=== PATIENT | female | born 1950 | race Caucasian/White ===

== ENCOUNTER 2017-08-12 13:12 | Inpatient (IN) | payer MEDICARE, MEDICAID ==
--- NOTE | 2017-08-12 13:41 | ED Physician Chart ---
ED Chief Complaint/HPI - Patient Information Date Seen:: 08/12/17 Time Seen:: 13:30 Chief Complaint:: LLE Redness History of Present Illness:: onset x 3 days of LLE erythema and swelling; no report of trauma, H/As, neck pain, S/T, cough, C/P, SOB, Abd. pain, A/N/V/D/c, fever, chills, or urinary s/s ; pt's last tetanus shot: < 5 years; UTD Allergies:: Allergies Allergy/AdvReac Type Severity Reaction Status Date / Time hydromorphone [From Dilaudid] Allergy Verified 03/08/16 20:06 Historian:: Patient, EMS Review:: Nurse's Note Reviewed, Old Chart Reviewed, EMS run form Reviewed ED Review of Systems - Review of Systems General/Constitutional: No fever, No chills, No weight loss, No weakness, No diaphoresis, No edema, No loss of appetite Skin: Skin lesions, Rash, No bruising Head: No headache, No light-headedness Eyes: No loss of vision, No pain, No diplopia ENT: No earache, No nasal drainage, No sore throat, No tinnitus Neck: No neck pain, No swelling, No thyromegaly, No stiffness, No mass noted Cardio Vascular: No chest pain, No palpitations, No PND, No orthopnea, No edema Pulmonary: No SOB, No cough, No sputum, No wheezing GI: No nausea, No vomiting, No diarrhea, No pain, No melena, No hematochezia, No constipation, No hematemesis G/U: No dysuria, No frequency, No hematuria, No nacturia 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: No vaginal discharge, No abnormal vaginal bleed, No contraction Musculoskeletal: No bone or joint pain, No back pain, No muscle pain Endocrine: No polyuria, No polydipsia Psychiatric: No prior psych history, No depression, No anxiety, No suicidal ideation, No homicidal ideation, No auditory hallucination, No visual hallucination Hematopoietic: No bruising, No lymphadenopathy Allergic/Immuno: No urticaria, No angioedema Neurological: No syncope, Focal symptoms, Weakness, No paresthesia, No headache , No seizure, Dizziness, No confusion, No vertigo ED Past Medical History - Past Medical History Obtainable: Yes Past Medical History: HTN, Asthma/COPD, CVA/TIA, Dyslipidemia Family History: Diabetes Melitus, HTN Social History: Non Smoker, No Alcohol, No Drug Use, Single, Care Facility Surgical History: None Psychiatricy History: None Medication: Reviewed Family Medical History - Family Member Mother History Unknown: Yes Ethnicity: Non- Living Status: Hx Family Cancer: Yes Hx Family Coronary Artery Disease: No Hx Family Congestive Heart Failure: No Hx Family Hypertension: No Hx Family Stroke: No Hx Family Diabetes: No Hx Family Seizures: No Hx Family Dementia: No Hx Family AIDS: No Hx Family HIV: No Hx Family COPD: No Hx Family Hepatitis: No Hx Family Psychiatric Problems: No Hx Family Tuberculosis: No ED Physical Exam - Physical Examination General/Constitutional: Awake, Well-developed, well-nourished, Alert, No distress, GCS 15, Non-toxic appearing, Ambulatory Head: Atraumatic Eyes: Lids, conjuctiva normal, PERRL, EOMI Skin: Nl inspection, No rash, No skin lesions, No ecchymosis, Well hydrated, No lymphadenopathy ENMT: External ears, nose nl, TM canals nl, Nasal exam nl, Lips, teeth, gums nl , Oropharynx nl, Tonsils nl Neck: Nontender, Full ROM w/o pain, No JVD, No nuchal rigidity, No bruit, No mass, No stridor Respiratory: Nl effort/Exclusion, Clear to Auscultation, No Wheeze/Rhonchi/Rales Cardio Vascular: RRR, No murmur, gallop, rubs, NL S1 S2, Carotid/Femoral/Distal pulses equal bilaterally GI: No tenderness/rebounding/guarding, No organomegaly, No hernia, Normal BS's, Nondistended, No mass/bruits, No McBurney tenderness : No CVA tenderness Extremities: No tenderness or effusion, Full ROM, normal strength in all extremities, No edema, Normal digits & nails Neuro/Psych: Alert/oriented, DTR's symmetric, Normal sensory exam, Normal motor strength, Judgement/insight normal, Mood normal, Normal gait, No focal deficits Misc: Normal back, No paraspinal tenderness ED Labs/Radiology/EKG Results - Lab Results Comments:: unremarkable - Radiology Results Comments:: CXR: CM; NAD; U/S: no DVT - EKG Interpretations EKG Time:: 15:00 Rate & Rhythm: 94; NSR Comments:: non-specific st-t changes ED Septic Shock - . Is Septic Shock (SBP<90, OR Lactate>4 mmol\L) present?: No ED Reassessment (Disposition) - Reassessment Reassessment Condition:: Improved - Diagnosis Diagnosis:: Dx: Cellulitis; Sepsis
[2017-08-12] MEDS ORDERED: cefTRIAXone 1 GM in Sodium Chloride 0.9% 50 ML IV ONE (13:42)
--- NOTE | 2017-08-12 14:06 | Diagnostic Imaging Report ---
CHEST X-RAY: AP view INDICATION: pain COMPARISON: 09/04/2016 FINDINGS: Low lung volumes are seen with chronic changes and left basal density. Cardiomegaly is noted with atherosclerosis. Degenerative changes of the spine are noted. IMPRESSION: Low lung mild chronic lung changes and left basal density. Small left effusion and left basal infiltrate cannot be excluded. Cardiomegaly and atherosclerotic vascular disease.
[2017-08-12 14:08] LABS: % BASOPHILS 0.5 % (0.0-2.0); % LYMPHOCYTES 18.5 % (20.0-50.0); EOSINOPHILE ABSOLUTE 0.4 Th/cmm (0.1-0.4); HEMATOCRIT 40.5 % (41.0-60); HEMOGLOBIN 12.8 gm/dL (12-16); LYMPHOCYTE ABSOLUTE 1.8 Th/cmm (1.5-3.0); MEAN CELL VOLUME 83.5 fl (81-100); MEAN CORPUSCULAR HEMOGLOBIN 26.3 pg (27.0-31.0); MEAN CORPUSCULAR HGB CONC 31.6 pg (28.0-36.0); MEAN PLATELET VOLUME 6.8 fl; MONOCYTE ABSOLUTE 0.3 Th/cmm (0.3-1.0); PLATELET COUNT 491 Th/cmm (150-400); RED BLOOD COUNT 4.86 Mil/cmm (3.80-5.20); RED CELL DISTRIBUTION WIDTH 15.7 % (11.5-20.0); WHITE BLOOD COUNT 9.5 Th/cmm (4.8-10.8)
[2017-08-12 14:23] LABS: INR 0.97 (0.5-1.4); PROTHROMBIN TIME (TEST) 10.1 SECONDS (9.5-11.5)
[2017-08-12 15:25] LABS: TROP I < 0.01 ng/mL (0.01-0.05)
[2017-08-12 16:22] LABS: BUN - UREA NITROGEN 9 mg/dL (7-25); CHLORIDE 104 mEq/L (98-107); GLUCOSE 159 mg/dL (70-105); SODIUM SERUM 139 mEq/L (136-145)
[2017-08-12 16:23] LABS: ALB/GLOB RATIO 0.5 (1.0-1.8); ALBUMIN 2.5 gm/dL (3.7-5.3); CALCIUM SERUM 9.8 mg/dL (8.6-10.3); CREATININE - SERUM 1.1 mg/dL (0.6-1.2); GFR AFRICAN-AMERICAN > 60.0 ml/min (>90); GFR NON AFRICAN-AMERICAN 52.8 ml/min; TOTAL PROTEIN,SERUM 7.1 gm/dL (6.0-8.3)
[2017-08-12 16:24] LABS: ALKALINE PHOSPHATASE 64 U/L (34-104); BILIRUBIN,TOTAL 0.3 mg/dL (0.3-1.0); CREATININE KINASE 15 U/L (30-223); SGOT 38 U/L (13-39); SGPT/ALT 56 U/L (7-52)
[2017-08-12] MEDS ORDERED: Vancomycin HCl 1.5 GM in Sodium Chloride 0.9% 500 ML IV ONE (20:45)
[2017-08-12] MEDS ORDERED: Non-Formulary Item 1 EA (Fenofibrate Nanocrystallized [Tricor] 145 MG) PO SCH (21:00)
[2017-08-12] MEDS ORDERED: Non-Formulary Item 1 EA (Melatonin [Melatonin] 6 MG) PO SCH (21:00)
[2017-08-12] MEDS: Atorvastatin Calcium 10 MG TAB PO SCH (21:29)
[2017-08-13 01:41] VITALS: BP 152/78
[2017-08-13] MEDS: Albuterol Nebulizer 2.5mg/3mL HHN SCH ×4 (02:00→18:59)
--- NOTE | 2017-08-13 05:14 | History and Physical ---
History of Present Illness - HPI Chief Complaint: Swelling to the left lower extremity HPI: 66y/o female who presents to [facility] for 3 day history of swelling to the left lower extremity noted the nursing facility and was sent to ER for evaluation. The ER physician states, " no report of trauma, H/As, neck pain, S/T, cough, C/P, SOB, Abd. pain, A/N/V/D/c, fever, chills, or urinary s/s ; pt's last tetanus shot: < 5 years; UTD" Initial Labwork revealed.... WBC 9.5 H/H 12.8/40.5 Plat 491K Na 139 K 4.0 Bun/Cr 9/1.1 Glu 159 Past Medical History: HTN, Asthma/COPD, CVA/TIA, Dyslipidemia Family History: Diabetes Melitus, HTN Social History: Non Smoker, No Alcohol, No Drug Use, Single, Care Facility Surgical History: None Psychiatricy History: None Medication: Reviewed The ER physician noted ... "- Lab Results Comments:: unremarkable - Radiology Results Comments:: CXR: CM; NAD; U/S: no DVT - EKG Interpretations EKG Time:: 15:00 Rate & Rhythm: 94; NSR Comments:: non-specific st-t changes" The patient was subsequently admitted for further evaluation and treatment. 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 Endocrine: Report: Diabetes Family Medical History - Family Member Mother History Unknown: Yes Ethnicity: Non- Living Status: Hx Family Cancer: Yes Hx Family Coronary Artery Disease: No Hx Family Congestive Heart Failure: No Hx Family Hypertension: Yes Hx Family Stroke: No Hx Family Diabetes: Yes Hx Family Seizures: No Hx Family Dementia: No Hx Family AIDS: No Hx Family HIV: No Hx Family COPD: No Hx Family Hepatitis: No Hx Family Psychiatric Problems: No Hx Family Tuberculosis: No Social History Smoke: No Alcohol: None Drugs: None Lives: [facility] - Medications Home Medications: Home Medication Medication Instructions Recorded Type Aspirin [Aspirin Chewable] 81 mg PO DAILY 09/04/16 History Atorvastatin Calcium [Lipitor] 20 mg PO HS 09/04/16 History Escitalopram Oxalate [Lexapro] 2.5 mg PO DAILY 09/04/16 History Gabapentin 300 mg PO TID 09/04/16 History Gabapentin [Neurontin] 200 mg PO HS 09/04/16 History Melatonin 6 mg PO HS 09/04/16 History Albuterol Nebulizer 2.5mg/3mL 2.5 mg IH Q2H PRN 08/12/17 History [Albuterol Neb UD*] Albuterol Nebulizer 2.5mg/3mL 2.5 mg IH Q6H 08/12/17 History [Albuterol Neb UD*] Amino Acids/Protein Hydrolys 30 ml PO BID 08/12/17 History [Pro-Stat Sugar Free Awc 887 ml] Amlodipine Besylate 10 mg PO DAILY 08/12/17 History Dextran 70/Hypromellose 1 each EACH EYE BID 08/12/17 History [Artificial Tears] Fenofibrate Nanocrystallized 145 mg PO HS 08/12/17 History [Tricor] Fluticasone Propionate Nasal 1 spr NS DAILY 08/12/17 History [Flonase] - Allergies Allergies/Adverse Reactions: Allergies Allergy/AdvReac Type Severity Reaction Status Date / Time hydromorphone [From Dilaudid] Allergy Verified 03/08/16 20:06 Review of Systems - Review of Systems Constitutional: Report: No Significant Eyes: Report: No Significant ENT: Report: No Significant Respiratory: Report: No Significant Cardiovascular: Report: No Significant Gastrointestinal: Report: No Significant Genitourinary: Report: No Significant Musculoskeletal: Report: No Significant Skin: Report: Other (Cellulitis to the Left Lower Extremity) Neurological: Report: No Significant Physical Exam - Physical Exam HEENT: Report: Ears Nose Throat within normal limits, Pharnyx within normal limits Neck: Report: Within normal limits Cardiovascular Systems: Report: +s1/s2 noted, Regular, Rate and Rhythm Respiratory: Report: Breath Sounds are within normal limits Abdomen: Report: Non-tender to palpation Back: Report: Inspection of back is within normal limits. Extremities: Report: Non-tender to palpation. Skin: Report: Other (Swelling to the Left Lower Extremity) Neuro/Psych: Report: Mood affect is within normal limits, A+Ox3 - Assessment Assessment: Cellulitis to the Left Lower Extremity HTN Asthma/COPD CVA/TIA Dyslipidemia DM Psychosis - Plan Plan: Admit to Med-Surg IV Vancomycin continue home meds repeat CBC,CMP consult Dr. Mcgee
[2017-08-13 06:49] LABS: % BASOPHILS 0.2 % (0.0-2.0); % EOSINOPHILS 2.1 % (0.0-5.0); % LYMPHOCYTES 10.5 % (20.0-50.0); % MONOCYTES 3.8 % (2.0-10.0); % NEUTROPHILS 83.4 % (40.0-80.0); EOSINOPHILE ABSOLUTE 0.3 Th/cmm (0.1-0.4); HEMATOCRIT 40.3 % (41.0-60); HEMOGLOBIN 12.9 gm/dL (12-16); LYMPHOCYTE ABSOLUTE 1.5 Th/cmm (1.5-3.0); MEAN CELL VOLUME 82.3 fl (81-100); MEAN CORPUSCULAR HEMOGLOBIN 26.4 pg (27.0-31.0); MEAN CORPUSCULAR HGB CONC 32.1 pg (28.0-36.0); MEAN PLATELET VOLUME 7.1 fl; MONOCYTE ABSOLUTE 0.6 Th/cmm (0.3-1.0); NEUTROPHILE ABSOLUTE 12.1 Th/cmm (1.8-8.0); PLATELET COUNT 447 Th/cmm (150-400); RED BLOOD COUNT 4.89 Mil/cmm (3.80-5.20); RED CELL DISTRIBUTION WIDTH 16.3 % (11.5-20.0)
[2017-08-13 07:08] LABS: ALB/GLOB RATIO 0.9 (1.0-1.8); ALKALINE PHOSPHATASE 55 U/L (34-104); ANION GAP 10.2 (7.0-16.0); BILIRUBIN,TOTAL 0.4 mg/dL (0.3-1.0); BUN - UREA NITROGEN 11 mg/dL (7-25); CALCIUM SERUM 9.1 mg/dL (8.6-10.3); CHLORIDE 105 mEq/L (98-107); CREATININE - SERUM 0.9 mg/dL (0.6-1.2); GFR AFRICAN-AMERICAN > 60.0 ml/min (>90); GFR NON AFRICAN-AMERICAN > 60.0 ml/min; GLUCOSE 155 mg/dL (70-105); POTASSIUM SERUM 4.2 mEq/L (3.5-5.1); SGOT 27 U/L (13-39); SGPT/ALT 32 U/L (7-52); SODIUM SERUM 138 mEq/L (136-145); TOTAL PROTEIN,SERUM 6.5 gm/dL (6.0-8.3)
[2017-08-13 07:09] LABS: WHITE BLOOD COUNT 14.5 Th/cmm (4.8-10.8)
--- NOTE | 2017-08-13 07:25 | Consultation ---
DATE OF CONSULTATION: 08/13/2017 PHYSICIAN: Dr. Gupta. RADIO FREQUENCY DESIGN ENGINEER: Dr. Allen. TYPE OF THE REPORT: Psychiatric consult. REASON FOR THE CONSULT: Depression. HISTORY OF PRESENT ILLNESS: The patient is a 66-year-old female who was admitted to the hospital because of the swelling of her left lower extremity. The patient has been anxious and has been depressed and Dr. Gupta asked me to evaluate the patient. The patient has been depressed. She has been taking Lexapro in a dose of 2.5 mg everyday, but it has not been helping much. She has been feeling hopeless, especially with her medical issues, but at the same time, she is denying any thoughts of suicide. She also is sleeping fairly. She denied any hallucinations or delusions. The patient is and has been living with her daughter. She has no issues with her daughter. PAST PSYCHIATRIC HISTORY: The patient denies any history of psychiatric treatment or inpatient treatment. PAST MEDICAL HISTORY: The patient was admitted to the hospital with swelling of the left lower extremity. SOCIAL HISTORY: The patient lives with her daughter. She is . She has 2 children. The patient denies any hallucinations or delusions. MENTAL STATUS EXAM: The patient denies any thoughts of suicide or homicide. The patient is alert and oriented to time, place, person, and situation. Intact immediate, recent, and remote memories. Fair insight and judgment. ASSESSMENT AND PRIMARY DIAGNOSIS: Major depression, moderate to severe, without psychotic features. TREATMENT PLAN: We will monitor the patient's behavior and condition closely. We will start individual as well as milieu psychotherapy. We will increase Lexapro to 5 mg everyday and we will adjust the dose. Thanks to Dr. Gupta and we will follow up the patient with you. JOB# [id number]
--- NOTE | 2017-08-13 07:32 | Diagnostic Imaging Report ---
Bilateral lower extremity DVT study HISTORY: Swelling, rule out DVT COMPARISON: None Technique: Longitudinal and transverse sonographic images of the bilateral lower extremity veins were obtained with doppler analysis. FINDINGS: There is normal compressibility, augmentation and phasicity of the bilateral common femoral, superficial femoral, popliteal, and posterior tibial veins. No thrombus is visualized. IMPRESSION: No evidence of thrombus within the bilateral lower extremity veins.
[2017-08-13 08:18] LABS: pH 7.37 (7.35-7.45)
[2017-08-13 08:19] LABS: ALLEN TEST Yes
[2017-08-13] MEDS ORDERED: VTE Chemical Prophylaxis Screen/Admission MC PRN (08:30)
[2017-08-13] MEDS ORDERED: Non-Formulary Item 1 EA (Dextran 70/Hypromellose [Artificial Tears] 1 EACH) EACH EYE SCH (09:00)
[2017-08-13] MEDS ORDERED: Non-Formulary Item 1 EA (Amino Acids/Protein Hydrolys [Pro-Stat Awc Liquid] 30 ML) PO SCH (09:00)
[2017-08-13] MEDS ORDERED: Escitalopram Oxalate 5 mg Tab PO SCH (09:00)
[2017-08-13] MEDS: Fenofibrate, Micronized 134 mg Cap PO SCH (09:07)
[2017-08-13] MEDS: Escitalopram Oxalate 5 mg Tab PO SCH (09:07)
[2017-08-13] MEDS: Aspirin 81mg Chewable Tab PO SCH (09:08)
[2017-08-13] MEDS: Albuterol Nebulizer 2.5mg/3mL HHN PRN ×2 (09:41→09:50)
[2017-08-13 15:43] LABS: ALLEN TEST YES
[2017-08-13] MEDS: Fluticasone Propionate 0.05mg/Actuation 16gm Nasal Spray NS SCH (16:45)
--- NOTE | 2017-08-13 17:40 | Consultation ---
Consult Note - Consult Note Service Date: 08/13/17 Referring Physician: Prashant aMrtinez Consult Note: PHYSICIAN Consultation Note: Date of Admission: 08/12/17 Purpose of Consultation: Cellulitis. Chief Complaint: Patient SHAYE LOREDO was admitted to location Medical/ Surgical Unit I with LEFT LEG CELLULITIS. History of Present Illness:Patient is 66 year-old- female DM2, Hyperlipidemia, depression, COPD, WYATT, Obesity admitted for swelling redness of the left leg for 2 days. On initial evaluation, her temperature was 97.8 degree F and WBC Count was 9, 500. It went up to 14.5K today. So, ID consult was called for antibiotic management. Currently, she was receiving vancomycin IV, which was discontinued. CXR revealed chronic changes and LLL infiltrate. Past Medical History: DM2, Hyperlipidemia, depression, COPD, WYATT, Obesity. 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 (08/12/17) CHRONIC OBSTRUCTIVE PULMONARY DISEASE, UNSPECIFIED (08/12/17) UNSPECIFIED ASTHMA, UNCOMPLICATED (08/12/17) CELLULITIS OF LEFT LOWER LIMB (08/12/17) PRSNL HX OF TIA (TIA), AND CEREB INFRC W/O RESID DEFICITS (08/12/17) Allergies Allergy/AdvReac Type Severity Reaction Status Date / Time hydromorphone [From Dilaudid] Allergy Verified 03/08/16 20:06 Vital Signs Temp 97.0 F 08/13/17 15:38 Pulse 112 08/13/17 15:38 Resp 19 08/13/17 15:38 BP 128/66 08/13/17 16:43 Pulse Ox 94 08/13/17 15:38 Intake & Output 08/12/17 08/13/17 08/13/17 18:59 06:59 18:59 Weight (lbs) 119.34 kg Other: # Voids 3 Weight Source Bedscale Laboratory Results - last 24 hr 08/13/17 08/13/17 08/13/17 06:17 06:17 08:00 WBC 14.5 H D RBC 4.89 Hgb 12.9 Hct 40.3 L MCV 82.3 MCH 26.4 L MCHC Differential 32.1 RDW 16.3 Plt Count 447 H MPV 7.1 Neutrophils % 83.4 H Lymphocytes % 10.5 L Monocytes % 3.8 Eosinophils % 2.1 Basophils % 0.2 Specimen Source Arterial Sample Site Left Radial pH 7.37 pCO2 50.0 H pO2 66.0 L HCO3 27.0 H Base Excess 2.8 O2 Saturation 92.0 Clifton Test Yes Vent Rate n/a Inspired O2 50% Tidal Volume n/a PEEP n/a Pressure (ins/psv/peep) n/a Critical Value Tracie Jin Sodium 138 Potassium 4.2 Chloride 105 Carbon Dioxide 27.0 Anion Gap 10.2 BUN 11 Creatinine 0.9 Est GFR ( Amer) > 60.0 Est GFR (Non-Af Amer) > 60.0 BUN/Creatinine Ratio 12.2 Glucose 155 H Calcium 9.1 Total Bilirubin 0.4 AST 27 ALT 32 Alkaline Phosphatase 55 Total Protein 6.5 Albumin 3.0 L Globulin 3.5 Albumin/Globulin Ratio 0.9 L 08/13/17 15:10 WBC RBC Hgb Hct MCV MCH MCHC Differential RDW Plt Count MPV Neutrophils % Lymphocytes % Monocytes % Eosinophils % Basophils % Specimen Source Arterial Sample Site Left Radial pH 7.30 L pCO2 50.0 H pO2 75.0 L HCO3 23.0 Base Excess -2.3 O2 Saturation 93.0 Clifton Test YES Vent Rate NA Inspired O2 50 Tidal Volume NA PEEP NA Pressure (ins/psv/peep) NA Critical Value E.SLATER Sodium Potassium Chloride Carbon Dioxide Anion Gap BUN Creatinine Est GFR ( Amer) Est GFR (Non-Af Amer) BUN/Creatinine Ratio Glucose Calcium Total Bilirubin AST ALT Alkaline Phosphatase Total Protein Albumin Globulin Albumin/Globulin Ratio Home Medication Medication Instructions Recorded Type Aspirin [Aspirin Chewable] 81 mg PO DAILY 09/04/16 History Atorvastatin Calcium [Lipitor] 20 mg PO HS 09/04/16 History Escitalopram Oxalate [Lexapro] 2.5 mg PO DAILY 09/04/16 History Gabapentin 300 mg PO TID 09/04/16 History Gabapentin [Neurontin] 200 mg PO HS 09/04/16 History Melatonin 6 mg PO HS 09/04/16 History Albuterol Nebulizer 2.5mg/3mL 2.5 mg IH Q2H PRN 08/12/17 History [Albuterol Neb UD*] Albuterol Nebulizer 2.5mg/3mL 2.5 mg IH Q6H 08/12/17 History [Albuterol Neb UD*] Amino Acids/Protein Hydrolys 30 ml PO BID 08/12/17 History [Pro-Stat Sugar Free Awc 887 ml] Amlodipine Besylate 10 mg PO DAILY 08/12/17 History Dextran 70/Hypromellose 1 each EACH EYE BID 08/12/17 History [Artificial Tears] Fenofibrate Nanocrystallized 145 mg PO HS 08/12/17 History [Tricor] Fluticasone Propionate Nasal 1 spr NS DAILY 08/12/17 History [Flonase] Current Medications Generic Name Dose Route Start Last Admin Trade Name Freq PRN Reason Stop Dose Admin Albuterol Sulfate 2.5 mg 08/12/17 19:58 08/13/17 09:50 Albuterol 2.5mg/3ml Neb Ud HHN 10/11/17 19:57 2.5 mg Q2HRT PRN Administration sob Albuterol Sulfate 2.5 mg 08/12/17 20:00 08/13/17 13:20 Albuterol 2.5mg/3ml Neb Ud HHN 10/11/17 19:59 2.5 mg Q6HRT NIMISHA Administration Amlodipine Besylate 10 mg 08/13/17 09:00 08/13/17 09:07 Norvasc PO 10/12/17 08:59 10 mg DAILY NIMISHA Administration Artificial Tears 1 drop 08/13/17 08:13 Artificial Tears Ophth Soln EACH EYE 10/12/17 08:12 BID PRN DRY EYES Aspirin 81 mg 08/13/17 09:00 08/13/17 09:08 Aspirin Chewable PO 10/12/17 08:59 81 mg DAILY NIMISHA Administration Atorvastatin Calcium 20 mg 08/12/17 21:00 08/12/17 21:29 Lipitor PO 10/11/17 20:59 20 mg HS NIMISHA Administration Escitalopram Oxalate 5 mg 08/13/17 09:00 08/13/17 09:07 Lexapro PO 10/12/17 08:59 5 mg DAILY NIMISHA Administration Protocol Fenofibrate 134 mg 08/13/17 09:00 08/13/17 09:07 Tricor PO 10/12/17 08:59 134 mg DAILY NIMISHA Administration Fluticasone Propionate 1 spr 08/13/17 09:00 08/13/17 16:45 Flonase NS 10/12/17 08:59 1 spr DAILY NIMISHA Administration Furosemide 20 mg 08/13/17 17:00 08/13/17 16:43 Lasix IVP 10/12/17 16:59 20 mg BID NIMISHA Administration Gabapentin 300 mg 08/12/17 21:00 08/13/17 16:45 Neurontin PO 10/11/17 20:59 Not Given TID@0800,1600,2100 NIMISHA Gabapentin 200 mg 08/12/17 21:00 08/12/17 21:30 Neurontin PO 10/11/17 20:59 200 mg HS NIMISHA Administration Lorazepam 1 mg 08/13/17 04:48 Ativan IVP 10/12/17 04:47 Q4HR PRN Anxiety Protocol Miscellaneous 1 ea 08/12/17 20:11 Vancomycin Iv Per Pharmacy [facility] 10/11/17 20:10 PRN PRN PROTOCOL Review of Systems: A 12 point ROS was reviewed with the pertinent positive and negatives noted in the HPI. Social History Smoking Status Never smoker Family Medical History Family Medical History Start: 08/12/17 20: 06 Freq: ONCE Status: Active Document 08/12/17 22:10 [email or web address] (Rec: 08/12/17 22:10 [email or web address] [id number]) Family Medical History Mother History Unknown Yes Physical Exam: General: Comfortable, no t in any acute distress. HEENT: Head: normocephalic, atraumatic. Oral cavity: Moist, pink tongue. Eyes: No pallor present, no icterus. Pupil: PERRLA, EOMI. Neck: Supple, no JVD, no carotid bruit, Cardio: S1 and S2 WNL. Respiratory: CTAP, decreased BS in left. Abdominal: Soft NT ND BS+ Genital/Urinary: Extremities: NCC Edema present. left leg is more edematous than right. there is some redness of right leg also. no tenderness. Neurological: Alert awake oriented x3. Assessment: 1.Leukoytosis. 2. Cellultis of left leg. 3. Pneumonia, LLL ? CAP versus HCAP versus atypical. 4. hypercapneic, hypoxic respiratory failure. 5. COPD with exacerbation. 6. WYATT. 7. Obesity. 8. DM2. 9. HTN. 10 ? Cor pulmonale. 11. Obesity. 12. H/O CVA. 13. Neutrophilia. 14. Thrombocytosis. 15. Pitting edemao of legs. 16. CHF. Plan: Will continue vacnomycin, add zithromax and Zosyn, Lasix IV to 40mg bid. Solumedrol 60mg IV q6. Transfer to the telemetry for hypercapneic, hypoxic respiratoy failure. Bipap. DVT prophylaxis. PPI prophylaxis. Thank you, Dr Vincent Martinez/ Dr Gupta for involving me in taking care of this patient. Signed, Guille Winkler M.D. [id number]
[2017-08-13 17:42] LABS: pH 7.32 (7.35-7.45)
[2017-08-13 17:43] LABS: ALLEN TEST Yes
[2017-08-13] MEDS ORDERED: Azithromycin 500 MG in Sodium Chloride 0.9% 250 ML IV ONE (18:06)
--- NOTE | 2017-08-13 18:25 | Consultation ---
Consult Note - Consult Note Service Date: 08/13/17 Referring Physician: Prashant Martinez Consult Note: PHYSICIAN Consultation Note: Date of Admission: 08/12/17 Purpose of Consultation: Chief Complaint: Patient SHAYE LOREDO was admitted to [facility] Telemetry with LEFT LEG CELLULITIS. History of Present Illness:Patient is 66 year-old- female DM2, Hyperlipidemia, depression, COPD, WYATT, Obesity, CVA admitted for swelling redness of the left leg for 2 days. She was found short of breath and hypoxic. She was put on bipap. CXR revealed chronic changes and LLL infiltrate. On initial evaluation, her temperature was 97.8 degree F and WBC Count was 9, 500. It went up to 14.5K today. So, ID consult was called for antibiotic management. Antibiotic-ludwig, she was receiving vancomycin IV. Past Medical History: DM2, Hyperlipidemia, depression, COPD, WYATT, Obesity, CVA with no residual deficit. 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 (08/12/17) CHRONIC OBSTRUCTIVE PULMONARY DISEASE, UNSPECIFIED (08/12/17) UNSPECIFIED ASTHMA, UNCOMPLICATED (08/12/17) CELLULITIS OF LEFT LOWER LIMB (08/12/17) PRSNL HX OF TIA (TIA), AND CEREB INFRC W/O RESID DEFICITS (08/12/17) Allergies Allergy/AdvReac Type Severity Reaction Status Date / Time hydromorphone [From Dilaudid] Allergy Verified 03/08/16 20:06 Vital Signs Temp 97.0 F 08/13/17 15:38 Pulse 112 08/13/17 15:38 Resp 19 08/13/17 15:38 BP 128/66 08/13/17 16:43 Pulse Ox 94 08/13/17 15:38 Intake & Output 08/12/17 08/13/17 08/13/17 18:59 06:59 18:59 Weight (lbs) 119.34 kg Other: # Voids 3 Weight Source Bedscale Laboratory Results - last 24 hr 08/13/17 08/13/17 08/13/17 06:17 06:17 08:00 WBC 14.5 H D RBC 4.89 Hgb 12.9 Hct 40.3 L MCV 82.3 MCH 26.4 L MCHC Differential 32.1 RDW 16.3 Plt Count 447 H MPV 7.1 Neutrophils % 83.4 H Lymphocytes % 10.5 L Monocytes % 3.8 Eosinophils % 2.1 Basophils % 0.2 Specimen Source Arterial Sample Site Left Radial pH 7.37 pCO2 50.0 H pO2 66.0 L HCO3 27.0 H Base Excess 2.8 O2 Saturation 92.0 [place]if[place] Test Yes Vent Rate n/a Inspired O2 50% Tidal Volume n/a PEEP n/a Pressure (ins/psv/peep) n/a Critical Value Tracie Julietatanco Sodium 138 Potassium 4.2 Chloride 105 Carbon Dioxide 27.0 Anion Gap 10.2 BUN 11 Creatinine 0.9 Est GFR ( Amer) > 60.0 Est GFR (Non-Af Amer) > 60.0 BUN/Creatinine Ratio 12.2 Glucose 155 H Calcium 9.1 Total Bilirubin 0.4 AST 27 ALT 32 Alkaline Phosphatase 55 Total Protein 6.5 Albumin 3.0 L Globulin 3.5 Albumin/Globulin Ratio 0.9 L 08/13/17 08/13/17 15:10 17:32 WBC RBC Hgb Hct MCV MCH MCHC Differential RDW Plt Count MPV Neutrophils % Lymphocytes % Monocytes % Eosinophils % Basophils % Specimen Source Arterial Arterial Sample Site Left Radial Left Radial pH 7.30 L 7.32 L pCO2 50.0 H 49.0 H pO2 75.0 L 68.0 L HCO3 23.0 23.7 Base Excess -2.3 -1.4 O2 Saturation 93.0 92.0 Clifton Test YES Yes Vent Rate NA 12 Inspired O2 50 50 Tidal Volume NA n/a PEEP NA n/a Pressure (ins/psv/peep) NA 6 Critical Value JEOVANY Abditanco Sodium Potassium Chloride Carbon Dioxide Anion Gap BUN Creatinine Est GFR ( Amer) Est GFR (Non-Af Amer) BUN/Creatinine Ratio Glucose Calcium Total Bilirubin AST ALT Alkaline Phosphatase Total Protein Albumin Globulin Albumin/Globulin Ratio Home Medication Medication Instructions Recorded Type Aspirin [Aspirin Chewable] 81 mg PO DAILY 09/04/16 History Atorvastatin Calcium [Lipitor] 20 mg PO HS 09/04/16 History Escitalopram Oxalate [Lexapro] 2.5 mg PO DAILY 05/18/17 History Gabapentin 300 mg PO TID 09/04/16 History Gabapentin [Neurontin] 200 mg PO HS 09/04/16 History Melatonin 6 mg PO HS 09/04/16 History Albuterol Nebulizer 2.5mg/3mL 2.5 mg IH Q2H PRN 08/12/17 History [Albuterol Neb UD*] Albuterol Nebulizer 2.5mg/3mL 2.5 mg IH Q6H 08/12/17 History [Albuterol Neb UD*] Amino Acids/Protein Hydrolys 30 ml PO BID 08/12/17 History [Pro-Stat Sugar Free Awc 887 ml] Amlodipine Besylate 10 mg PO DAILY 08/12/17 History Dextran 70/Hypromellose 1 each EACH EYE BID 08/12/17 History [Artificial Tears] Fenofibrate Nanocrystallized 145 mg PO HS 08/12/17 History [Tricor] Fluticasone Propionate Nasal 1 spr NS DAILY 08/12/17 History [Flonase] Current Medications Generic Name Dose Route Start Last Admin Trade Name Freq PRN Reason Stop Dose Admin Albuterol Sulfate 2.5 mg 08/12/17 19:58 08/13/17 09:50 Albuterol 2.5mg/3ml Neb Ud HHN 10/11/17 19:57 2.5 mg Q2HRT PRN Administration sob Albuterol Sulfate 2.5 mg 08/12/17 20:00 08/13/17 13:20 Albuterol 2.5mg/3ml Neb Ud HHN 10/11/17 19:59 2.5 mg Q6HRT NIMISHA Administration Amlodipine Besylate 10 mg 08/13/17 09:00 08/13/17 09:07 Norvasc PO 10/12/17 08:59 10 mg DAILY NIMISHA Administration Artificial Tears 1 drop 08/13/17 08:13 Artificial Tears Ophth Soln EACH EYE 10/12/17 08:12 BID PRN DRY EYES Aspirin 81 mg 08/13/17 09:00 08/13/17 09:08 Aspirin Chewable PO 10/12/17 08:59 81 mg DAILY NIMISHA Administration Atorvastatin Calcium 20 mg 08/12/17 21:00 08/12/17 21:29 Lipitor PO 10/11/17 20:59 20 mg HS NIMISHA Administration Escitalopram Oxalate 5 mg 08/13/17 09:00 08/13/17 09:07 Lexapro PO 10/12/17 08:59 5 mg DAILY NIMISHA Administration Protocol Fenofibrate 134 mg 08/13/17 09:00 08/13/17 09:07 Tricor PO 10/12/17 08:59 134 mg DAILY NIMISHA Administration Fluticasone Propionate 1 spr 08/13/17 09:00 08/13/17 16:45 Flonase NS 10/12/17 08:59 1 spr DAILY NIMISHA Administration Furosemide 40 mg 08/13/17 18:04 Lasix IVP 10/12/17 18:03 BID NIMISHA Gabapentin 300 mg 08/12/17 21:00 08/13/17 16:45 Neurontin PO 10/11/17 20:59 Not Given TID@0800,1600,2100 NIMISHA Gabapentin 200 mg 08/12/17 21:00 08/12/17 21:30 Neurontin PO 10/11/17 20:59 200 mg HS NIMISHA Administration Heparin Sodium (Porcine) 5,000 units 08/13/17 21:00 Heparin SUBQ 10/12/17 20:59 Q12HR NIMISHA Azithromycin 500 mg/ Sodium 250 mls @ 250 mls/hr 08/13/17 18:06 Chloride IV 08/13/17 19:05 ONCE ONE Azithromycin 250 mg/ Sodium 250 mls @ 250 mls/hr 08/14/17 09:00 Chloride IV 10/13/17 08:59 Q24HR NIMISHA Piperacillin Sod/Tazobactam 100 mls @ 100 mls/hr 08/13/17 21:00 Sod 4.5 gm/ Sodium Chloride IV 10/12/17 20:59 Q8HR NIMISHA Lorazepam 1 mg 08/13/17 04:48 Ativan IVP 10/12/17 04:47 Q4HR PRN Anxiety Protocol Methylprednisolone Sodium Succinate 60 mg 08/13/17 18:30 Solu-Medrol IVP 10/12/17 18:29 Q6H NIMISHA Miscellaneous 1 ea 08/12/17 20:11 Vancomycin Iv Per Pharmacy 10/11/17 20:10 PRN PRN PROTOCOL Pantoprazole Sodium 40 mg 08/14/17 09:00 Protonix IVP 10/13/17 08:59 DAILY NIMISHA Review of Systems: A 12 point ROS was reviewed with the pertinent positive and negatives noted in the HPI. Social History Smoking Status Never smoker Family Medical History Family Medical History Start: 08/12/17 20: 06 Freq: ONCE Status: Active Document 08/12/17 22:10 CAITLIN (Rec: 08/12/17 22:10 CAITLIN [id number]) Family Medical History Mother History Unknown Yes Physical Exam: General: Comfortable, no t in any acute distress. On bipap. HEENT: Head: normocephalic, atraumatic. Oral cavity: Moist, pink tongue. Eyes: No pallor present, no icterus. Pupil: PERRLA, EOMI. Neck: Supple, no JVD, no carotid bruit, Cardio: S1 and S2 WNL. Respiratory: CTAP, decreased BS in left. Abdominal: Soft NT ND BS+ Genital/Urinary: Extremities: NCC Edema present. left leg is more edematous than right. there is some redness of right leg also. no tenderness. Neurological: Alert awake oriented x3. Assessment: 1.Leukoytosis. 2. Cellultis of left leg. US of left leg neg for DVT. 3. Pneumonia, LLL ? CAP versus HCAP versus atypical. 4. hypercapneic, hypoxic respiratory failure. 5. COPD with exacerbation. 6. WYATT. 7. Obesity. 8. DM2. 9. HTN. 10 ? Cor pulmonale. 11. Obesity. 12. H/O CVA. 13. Neutrophilia. 14. Thrombocytosis. 15. Pitting edemao of legs. 16. CHF. 17. Respiratory acidosis. PH 7.32. 18. DVT prophylaxis. 19. PPI prophylaxis. Plan: Will continue vacnomycin, zithromax and Zosyn, Lasix IV to 40mg bid. Solumedrol 60mg IV q6. Transfer to the telemetry for hypercapneic, hypoxic respiratoy failure. Bipap. DVT prophylaxis. PPI prophylaxis. Thank you, Dr Vincent Martinez/ Dr Gupta for involving me in taking care of this patient. Signed, Guille Winkler M.D. [id number]
[2017-08-13] MEDS: Atorvastatin Calcium 10 MG TAB PO SCH (21:04)
--- NOTE | 2017-08-13 23:17 | Consultation ---
DATE OF CONSULTATION: 08/13/2017 REFERRING PHYSICIAN: Beau Gupta, DO Thank you very much for this consultation. This is a consultation, of note, for Dr. Armand Winkler. He will follow the patient upon his return in a couple days. HISTORY OR PRESENT ILLNESS: The patient is a 66-year-old female with history of COPD, who presented with some shortness of breath, congestion, and swelling of the left leg. The patient has underlying history of obesity, COPD, I am not sure sleep apnea or not, but on talking to her, she is very sleepy and opens eyes, but goes back to sleep, unable to give any other history. SOCIAL HISTORY: Not known. REVIEW OF SYSTEMS: Unable to obtain because of the patient's condition. PHYSICAL EXAMINATION: GENERAL: The patient is arousable, but lethargic. VITAL SIGNS: Temperature is 96.8, pulse 101, respirations are 19, blood pressure 140/68, saturation is 94%. HEENT: Atraumatic and normocephalic. Pupils react to light and accommodation. Ears, nose, and throat normal. NECK: Supple. No JVD. CHEST: There is rhonchi bilaterally, fair air entry. HEART: Regular rhythm. ABDOMEN: Soft. EXTREMITIES: No edema. LABORATORY DATA: ABGs: The pH 7.37, pCO2 of 50, pO2 of 66, bicarbonate 27. Repeat ABG shows pH of 7.30, repeat pCO2 is still 50, bicarb is still 23. The WBC is 14.5, hemoglobin 12.9, hematocrit 40.3, and platelets are 447. Sodium 130, potassium 4.2, BUN 11, and creatinine 0.9. Chest x-ray: Cardiomegaly, small effusion, left base. IMPRESSION: 1. This is a 66-year-old female with chronic obstructive pulmonary disease exacerbation. 2. CO2 retention, possibly underlying obstructive sleep apnea syndrome. 3. Possible underlying congestive heart failure as well with swelling of left lower extremity with apparently no evidence of deep venous thrombosis on venous Doppler study. PLAN: 1. IV antibiotics. 2. Place her on the BiPAP. 3. Add diuretics. 4. Nebulizer treatment and follow up ABGs. We will follow the patient with you. Thank you very much for this consultation. JOB# [id number]
[2017-08-14] MEDS: Albuterol Nebulizer 2.5mg/3mL HHN SCH ×4 (01:07→18:42)
[2017-08-14 06:31] LABS: LYMPHOCYTE ABSOLUTE 1.4 Th/cmm (1.5-3.0); MANUAL DIFF REQUIRED? YES; MONOCYTE ABSOLUTE 0.3 Th/cmm (0.3-1.0)
[2017-08-14 06:36] LABS: HEMOGLOBIN 12.1 gm/dL (12-16); MEAN CELL VOLUME 82.9 fl (81-100); MEAN CORPUSCULAR HEMOGLOBIN 26.3 pg (27.0-31.0); MEAN CORPUSCULAR HGB CONC 31.7 pg (28.0-36.0); MEAN PLATELET VOLUME 7.1 fl; PLATELET COUNT 436 Th/cmm (150-400); RED BLOOD COUNT 4.59 Mil/cmm (3.80-5.20); RED CELL DISTRIBUTION WIDTH 16.1 % (11.5-20.0)
[2017-08-14 06:43] LABS: WHITE BLOOD COUNT 23.7 Th/cmm (4.8-10.8)
[2017-08-14 07:16] LABS: TOTAL CELLS COUNTED 100
[2017-08-14 07:17] LABS: BAND NEUTROPHILE 3 % (0-10); LYMPHOCYTE 7 % (20-50); MONOCYTE 2 % (2-10); NEUTROPHILS 88 % (40-80)
[2017-08-14] MEDS: Fluticasone Propionate 0.05mg/Actuation 16gm Nasal Spray NS SCH (08:25)
[2017-08-14] MEDS: Escitalopram Oxalate 5 mg Tab PO SCH (08:26)
[2017-08-14] MEDS: Fenofibrate, Micronized 134 mg Cap PO SCH (08:26)
[2017-08-14] MEDS: Aspirin 81mg Chewable Tab PO SCH (08:26)
[2017-08-14] MEDS: Lactobacillus Rhamnosus GG 15 Billion CFU CAP.SPRINK PO SCH (08:29)
[2017-08-14] MEDS ORDERED: Probiotic Screen MC PRN (08:30)
[2017-08-14] MEDS: Azithromycin 250 MG in Sodium Chloride 0.9% 250 ML IV SCH (09:13)
[2017-08-14] MEDS: Vancomycin HCl 1.5 GM in Sodium Chloride 0.9% 500 ML IV SCH ×2 (12:04→22:16)
--- NOTE | 2017-08-14 14:49 | Infectious Disease Prog Note ---
Infectious Disease Subjective - Review of Systems Service Date: 08/14/17 Subjective: doing well. Infectious Disease Objective - Results Result Diagrams: 08/14/17 06:15 08/13/17 06:17 Recent Labs: Laboratory Last Values WBC 23.7 Th/cmm (4.8-10.8) H* D 08/14/17 06:15 RBC 4.59 Mil/cmm (3.80-5.20) 08/14/17 06:15 Hgb 12.1 gm/dL (12-16) 08/14/17 06:15 Hct 38.0 % (41.0-60) L 08/14/17 06:15 MCV 82.9 fl (81-100) 08/14/17 06:15 MCH 26.3 pg (27.0-31.0) L 08/14/17 06:15 MCHC Differential 31.7 pg (28.0-36.0) 08/14/17 06:15 RDW 16.1 % (11.5-20.0) 08/14/17 06:15 Plt Count 436 Th/cmm (150-400) H 08/14/17 06:15 MPV 7.1 fl 08/14/17 06:15 Neutrophils % MEDICAL DOCTOR 08/14/17 06:15 Band Neutrophils % 3 % (0-10) 08/14/17 06:15 Lymphocytes % MEDICAL DOCTOR 08/14/17 06:15 Monocytes % MEDICAL DOCTOR 08/14/17 06:15 Eosinophils % MEDICAL DOCTOR 08/14/17 06:15 Basophils % MEDICAL DOCTOR 08/14/17 06:15 Neutrophils (Manual) 88 % (40-80) H 08/14/17 06:15 Lymphocytes 7 % (20-50) L 08/14/17 06:15 Monocytes 2 % (2-10) 08/14/17 06:15 PT 10.1 SECONDS (9.5-11.5) 08/12/17 14:01 INR 0.97 (0.5-1.4) 08/12/17 14:01 PTT (Actin FS) 23.7 SECONDS (26.0-38.0) L 08/12/17 14:01 Specimen Source Arterial 08/13/17 17:32 Sample Site Left Radial 08/13/17 17:32 pH 7.32 (7.35-7.45) L 08/13/17 17:32 pCO2 49.0 mmHg (35.0-45.0) H 08/13/17 17:32 pO2 68.0 mmHg (80.0-100.0) L 08/13/17 17:32 HCO3 23.7 mEq/L (20.0-26.0) 08/13/17 17:32 Base Excess -1.4 mEq/L (-3.0-3.0) 08/13/17 17:32 O2 Saturation 92.0 % (92.0-100.0) 08/13/17 17:32 Clifton Test Yes 08/13/17 17:32 Vent Rate 12 08/13/17 17:32 Inspired O2 50 08/13/17 17:32 Tidal Volume n/a 08/13/17 17:32 PEEP n/a 08/13/17 17:32 Pressure (ins/psv/peep) 6 08/13/17 17:32 Critical Value [place] 08/13/17 17:32 Sodium 138 mEq/L (136-145) 08/13/17 06:17 Potassium 4.2 mEq/L (3.5-5.1) 08/13/17 06:17 Chloride 105 mEq/L (98-107) 08/13/17 06:17 Carbon Dioxide 27.0 mEq/L (21.0-31.0) 08/13/17 06:17 Anion Gap 10.2 (7.0-16.0) 08/13/17 06:17 BUN 11 mg/dL (7-25) 08/13/17 06:17 Creatinine 0.9 mg/dL (0.6-1.2) 08/13/17 06:17 Est GFR ( Amer) > 60.0 ml/min (>90) 08/13/17 06:17 Est GFR (Non-Af Amer) > 60.0 ml/min 08/13/17 06:17 BUN/Creatinine Ratio 12.2 08/13/17 06:17 Glucose 155 mg/dL (70-105) H 08/13/17 06:17 Whole Bld Lactic Acid 1.80 mmol/L (0.60-1.99) 08/12/17 14:01 Calcium 9.1 mg/dL (8.6-10.3) 08/13/17 06:17 Total Bilirubin 0.4 mg/dL (0.3-1.0) 08/13/17 06:17 AST 27 U/L (13-39) 08/13/17 06:17 ALT 32 U/L (7-52) 08/13/17 06:17 Alkaline Phosphatase 55 U/L (34-104) 08/13/17 06:17 Creatine Kinase 15 U/L (30-223) L 08/12/17 14:01 Troponin I < 0.01 ng/mL (0.01-0.05) L 08/12/17 14:01 Total Protein 6.5 gm/dL (6.0-8.3) 08/13/17 06:17 Albumin 3.0 gm/dL (3.7-5.3) L 08/13/17 06:17 Globulin 3.5 gm/dL 08/13/17 06:17 Albumin/Globulin Ratio 0.9 (1.0-1.8) L 08/13/17 06:17 - Physical Exam Vitals and I&O: Vital Signs Temp 98.2 F 08/14/17 11:47 Pulse 100 08/14/17 12:19 Resp 20 08/14/17 12:19 BP 128/59 08/14/17 11:47 Pulse Ox 95 08/14/17 12:19 Intake & Output 08/13/17 08/14/17 08/14/17 18:59 06:59 18:59 Intake Total 350 560 Balance 350 560 Weight (lbs) 119.295 kg 111.584 kg Intake: Intake, IV Amount 200 Piperacillin Sodium/ 200 Tazobact 4.5 gm In Sodium Chloride 0.9% 100 ml @ 100 mls/hr IV Q8HR [facility] Rx #:[id number] Oral 350 360 Other: # Voids 3 3 # Bowel Movements 1 Stool Characteristics Soft Soft Formed Formed Weight Source Bedscale Bedscale Active Medications: Current Medications Albuterol Sulfate (Albuterol 2.5mg/3ml Neb Ud) 2.5 mg HHN Q2HRT PRN PRN Reason: sob Stop: 10/11/17 19:57 Last Admin: 08/13/17 09:50 Dose: 2.5 mg Albuterol Sulfate (Albuterol 2.5mg/3ml Neb Ud) 2.5 mg HHN Q6HRT NIMISHA Stop: 10/11/17 19:59 Last Admin: 08/14/17 12:17 Dose: 2.5 mg Amlodipine Besylate (Norvasc) 10 mg PO DAILY NIMISHA Stop: 10/12/17 08:59 Last Admin: 08/14/17 08:26 Dose: 10 mg Artificial Tears (Artificial Tears Ophth Soln) 1 drop EACH EYE BID PRN PRN Reason: DRY EYES Stop: 10/12/17 08:12 Aspirin (Aspirin Chewable) 81 mg PO DAILY NIMISHA Stop: 10/12/17 08:59 Last Admin: 08/14/17 08:26 Dose: 81 mg Atorvastatin Calcium (Lipitor) 20 mg PO HS NIMISHA Stop: 10/11/17 20:59 Last Admin: 08/13/17 21:04 Dose: 20 mg Escitalopram Oxalate (Lexapro) 5 mg PO DAILY NIMISHA PRN Reason: Protocol Stop: 10/12/17 08:59 Last Admin: 08/14/17 08:26 Dose: 5 mg Fenofibrate (Tricor) 134 mg PO DAILY NIMISHA Stop: 10/12/17 08:59 Last Admin: 08/14/17 08:26 Dose: 134 mg Fluticasone Propionate (Flonase) 1 spr NS DAILY NIMISHA Stop: 10/12/17 08:59 Last Admin: 08/14/17 08:25 Dose: 1 spr Furosemide (Lasix) 40 mg IVP BID NIMISHA Stop: 10/12/17 18:03 Last Admin: 08/14/17 08:25 Dose: 40 mg Gabapentin (Neurontin) 300 mg PO TID@0800,1600,2100 NIMISHA Stop: 10/11/17 20:59 Last Admin: 08/14/17 08:26 Dose: 300 mg Gabapentin (Neurontin) 200 mg PO HS NIMISHA Stop: 10/11/17 20:59 Last Admin: 08/13/17 21:04 Dose: 200 mg Heparin Sodium (Porcine) (Heparin) 5,000 units SUBQ Q12HR NIMISHA Stop: 10/12/17 20:59 Last Admin: 08/14/17 08:27 Dose: 5,000 units Azithromycin 250 mg/ Sodium (Chloride) 250 mls @ 250 mls/hr IV Q24HR NIMISHA Stop: 10/13/17 08:59 Last Admin: 08/14/17 09:13 Dose: 250 mls/hr Piperacillin Sod/Tazobactam (Sod 4.5 gm/ Sodium Chloride) 100 mls @ 100 mls/hr IV Q8HR NIMISHA Stop: 10/12/17 20:59 Last Infusion: 08/14/17 06:03 Dose: Infused Vancomycin HCl 1.5 gm/ Sodium (Chloride) 500 mls @ 250 mls/hr IV Q12H NIMISHA Stop: 10/13/17 10:59 Last Admin: 08/14/17 12:04 Dose: 250 mls/hr Lactobacillus Rhamnosus (Culturelle 15b) 1 each PO DAILY NIMISHA Stop: 10/13/17 08:59 Last Admin: 08/14/17 08:29 Dose: 1 each Lorazepam (Ativan) 1 mg IVP Q4HR PRN; Protocol PRN Reason: Anxiety Stop: 10/12/17 04:47 Methylprednisolone Sodium Succinate (Solu-Medrol) 40 mg IVP Q12HR NIMISHA Stop: 10/13/17 20:59 Miscellaneous (Vancomycin Iv Per Pharmacy) 1 ea PRN PRN PRN Reason: PROTOCOL Stop: 10/11/17 20:10 Miscellaneous (Probiotic Screen) 1 [facility] PRN PRN PRN Reason: PROTOCOL Stop: 10/13/17 08:29 Mupirocin (Bactroban Oint) 1 appl NS BID NIMISHA Stop: 08/18/17 17:01 Last Admin: 08/14/17 09:13 Dose: 1 appl Pantoprazole Sodium (Protonix) 40 mg IVP DAILY NIMISHA Stop: 10/13/17 08:59 Last Admin: 08/14/17 08:25 Dose: 40 mg General: no acute distress, well developed, well nourished HEENT: atraumatic, normocephalic, PERRLA Neck: supple, no thyromegaly Cardiovascular: S1S2, regular Lungs: clear to auscultation bilaterally, clear to percussion Abdomen: soft, bowel sounds, no tender, no distended, no mass, no rebound Extremities: edema, other (redness o fthe left leg.), no cyanosis, no clubbing Neurological: awake, alert, oriented Skin: intact - Procedures Procedures: Procedures Procedure Code Date ASSISTANCE WITH RESPIRATORY VENTILATION, <24 HRS, CPAP [id number] 08/12/17 POS AIRWAY PRESSURE CPAP 84453 08/12/17 Infectious Disease Assmt/Plan - Assessment Assessment: 1.Leukoytosis. 2. Cellultis of left leg. US of left leg neg for DVT. 3. Pneumonia, LLL ? CAP versus HCAP versus atypical. 4. hypercapneic, hypoxic respiratory failure. 5. COPD with exacerbation. 6. WYATT. 7. Obesity. 8. DM2. 9. HTN. 10 ? Cor pulmonale. 11. Obesity. 12. H/O CVA. 13. Neutrophilia. 14. Thrombocytosis. 15. Pitting edemao of legs. 16. CHF. 17. Respiratory acidosis. PH 7.32. 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 19. DVT prophylaxis. 20. PPI prophylaxis. - Plan Plan: Will continue vacnomycin, zithromax and Zosyn, Lasix IV to 40mg bid. Lower Solumedrol 40 mg IV q12. Monitor telemetry for hypercapneic, hypoxic respiratoy failure. Bipap. DVT prophylaxis. PPI prophylaxis.
--- NOTE | 2017-08-14 20:35 | General Progress Note ---
Subjective - Review of Systems Service Date: 08/14/17 Subjective: Patient seen and examined chart reviewed Patient feels better denied chest pain or shortness of breath off BIPAP Objective - Results Result Diagrams: 08/14/17 06:15 08/13/17 06:17 Recent Labs: Laboratory Last Values WBC 23.7 Th/cmm (4.8-10.8) H* D 08/14/17 06:15 RBC 4.59 Mil/cmm (3.80-5.20) 08/14/17 06:15 Hgb 12.1 gm/dL (12-16) 08/14/17 06:15 Hct 38.0 % (41.0-60) L 08/14/17 06:15 MCV 82.9 fl (81-100) 08/14/17 06:15 MCH 26.3 pg (27.0-31.0) L 08/14/17 06:15 MCHC Differential 31.7 pg (28.0-36.0) 08/14/17 06:15 RDW 16.1 % (11.5-20.0) 08/14/17 06:15 Plt Count 436 Th/cmm (150-400) H 08/14/17 06:15 MPV 7.1 fl 08/14/17 06:15 Neutrophils % INSTALL TECHNICIAN 08/14/17 06:15 Band Neutrophils % 3 % (0-10) 08/14/17 06:15 Lymphocytes % INSTALL TECHNICIAN 08/14/17 06:15 Monocytes % INSTALL TECHNICIAN 08/14/17 06:15 Eosinophils % INSTALL TECHNICIAN 08/14/17 06:15 Basophils % INSTALL TECHNICIAN 08/14/17 06:15 Neutrophils (Manual) 88 % (40-80) H 08/14/17 06:15 Lymphocytes 7 % (20-50) L 08/14/17 06:15 Monocytes 2 % (2-10) 08/14/17 06:15 PT 10.1 SECONDS (9.5-11.5) 08/12/17 14:01 INR 0.97 (0.5-1.4) 08/12/17 14:01 PTT (Actin FS) 23.7 SECONDS (26.0-38.0) L 08/12/17 14:01 Specimen Source Arterial 08/13/17 17:32 Sample Site Left Radial 08/13/17 17:32 pH 7.32 (7.35-7.45) L 08/13/17 17:32 pCO2 49.0 mmHg (35.0-45.0) H 08/13/17 17:32 pO2 68.0 mmHg (80.0-100.0) L 08/13/17 17:32 HCO3 23.7 mEq/L (20.0-26.0) 08/13/17 17:32 Base Excess -1.4 mEq/L (-3.0-3.0) 08/13/17 17:32 O2 Saturation 92.0 % (92.0-100.0) 08/13/17 17:32 [place] Test Yes 08/13/17 17:32 Vent Rate 12 08/13/17 17:32 Inspired O2 50 08/13/17 17:32 Tidal Volume n/a 08/13/17 17:32 PEEP n/a 08/13/17 17:32 Pressure (ins/psv/peep) 6 08/13/17 17:32 Critical Value [place] 08/13/17 17:32 Sodium 138 mEq/L (136-145) 08/13/17 06:17 Potassium 4.2 mEq/L (3.5-5.1) 08/13/17 06:17 Chloride 105 mEq/L (98-107) 08/13/17 06:17 Carbon Dioxide 27.0 mEq/L (21.0-31.0) 08/13/17 06:17 Anion Gap 10.2 (7.0-16.0) 08/13/17 06:17 BUN 11 mg/dL (7-25) 08/13/17 06:17 Creatinine 0.9 mg/dL (0.6-1.2) 08/13/17 06:17 Est GFR ( Amer) > 60.0 ml/min (>90) 08/13/17 06:17 Est GFR (Non-Af Amer) > 60.0 ml/min 08/13/17 06:17 BUN/Creatinine Ratio 12.2 08/13/17 06:17 Glucose 155 mg/dL (70-105) H 08/13/17 06:17 Whole Bld Lactic Acid 1.80 mmol/L (0.60-1.99) 08/12/17 14:01 Calcium 9.1 mg/dL (8.6-10.3) 08/13/17 06:17 Total Bilirubin 0.4 mg/dL (0.3-1.0) 08/13/17 06:17 AST 27 U/L (13-39) 08/13/17 06:17 ALT 32 U/L (7-52) 08/13/17 06:17 Alkaline Phosphatase 55 U/L (34-104) 08/13/17 06:17 Creatine Kinase 15 U/L (30-223) L 08/12/17 14:01 Troponin I < 0.01 ng/mL (0.01-0.05) L 08/12/17 14:01 Total Protein 6.5 gm/dL (6.0-8.3) 08/13/17 06:17 Albumin 3.0 gm/dL (3.7-5.3) L 08/13/17 06:17 Globulin 3.5 gm/dL 08/13/17 06:17 Albumin/Globulin Ratio 0.9 (1.0-1.8) L 08/13/17 06:17 - Physical Exam Vitals and I&O: Vital Signs Temp 99.2 F 08/14/17 20:00 Pulse 107 08/14/17 20:00 Resp 19 08/14/17 20:00 BP 130/66 08/14/17 17:44 Pulse Ox 96 08/14/17 20:00 Intake & Output 08/14/17 08/14/17 08/15/17 06:59 18:59 06:59 Intake Total 560 Balance 560 Weight (lbs) 111.584 kg Intake: Intake, IV Amount 200 Piperacillin Sodium/ 200 Tazobact 4.5 gm In Sodium Chloride 0.9% 100 ml @ 100 mls/hr IV Q8HR [facility] Rx #:[id number] Oral 360 Other: # Voids 3 Stool Characteristics Soft Formed Weight Source Bedscale Active Medications: Current Medications Albuterol Sulfate (Albuterol 2.5mg/3ml Neb Ud) 2.5 mg HHN Q2HRT PRN PRN Reason: sob Stop: 10/11/17 19:57 Last Admin: 08/13/17 09:50 Dose: 2.5 mg Albuterol Sulfate (Albuterol 2.5mg/3ml Neb Ud) 2.5 mg HHN Q6HRT [facility]IS[facility] Stop: 10/11/17 19:59 Last Admin: 08/14/17 18:42 Dose: 2.5 mg Amlodipine Besylate (Norvasc) 10 mg PO DAILY N[facility] Stop: 10/12/17 08:59 Last Admin: 08/14/17 08:26 Dose: 10 mg Artificial Tears (Artificial Tears Ophth Soln) 1 drop EACH EYE BID PRN PRN Reason: DRY EYES Stop: 10/12/17 08:12 Aspirin (Aspirin Chewable) 81 mg PO DAILY N[facility] Stop: 10/12/17 08:59 Last Admin: 08/14/17 08:26 Dose: 81 mg Atorvastatin Calcium (Lipitor) 20 mg PO HS N[facility]HA Stop: 10/11/17 20:59 Last Admin: 08/13/17 21:04 Dose: 20 mg Escitalopram Oxalate (Lexapro) 5 mg PO DAILY [facility] PRN Reason: Protocol Stop: 10/12/17 08:59 Last Admin: 08/14/17 08:26 Dose: 5 mg Fenofibrate (Tricor) 134 mg PO DAILY N[facility] Stop: 10/12/17 08:59 Last Admin: 08/14/17 08:26 Dose: 134 mg Fluticasone Propionate (Flonase) 1 spr NS DAILY N[facility] Stop: 10/12/17 08:59 Last Admin: 08/14/17 08:25 Dose: 1 spr Furosemide (Lasix) 40 mg IVP BID N[facility]HA Stop: 10/12/17 18:03 Last Admin: 08/14/17 17:44 Dose: 40 mg Gabapentin (Neurontin) 300 mg PO TID@0800,1600,2100 [facility] Stop: 10/11/17 20:59 Last Admin: 08/14/17 17:42 Dose: 300 mg Gabapentin (Neurontin) 200 mg PO HS N[facility]ISHA Stop: 10/11/17 20:59 Last Admin: 08/13/17 21:04 Dose: 200 mg Heparin Sodium (Porcine) (Heparin) 5,000 units SUBQ Q12HR [facility] Stop: 10/12/17 20:59 Last Admin: 08/14/17 08:27 Dose: 5,000 units Azithromycin 250 mg/ Sodium (Chloride) 250 mls @ 250 mls/hr IV Q24HR [facility] Stop: 10/13/17 08:59 Last Admin: 08/14/17 09:13 Dose: 250 mls/hr Piperacillin Sod/Tazobactam (Sod 4.5 gm/ Sodium Chloride) 100 mls @ 100 mls/hr IV Q8HR [facility] Stop: 10/12/17 20:59 Last Admin: 08/14/17 15:23 Dose: 100 mls/hr Vancomycin HCl 1.5 gm/ Sodium (Chloride) 500 mls @ 250 mls/hr IV Q12H [facility] Stop: 10/13/17 10:59 Last Admin: 08/14/17 12:04 Dose: 250 mls/hr Lactobacillus Rhamnosus (Culturelle 15b) 1 each PO DAILY N[facility]ISHA Stop: 10/13/17 08:59 Last Admin: 08/14/17 08:29 Dose: 1 each Lorazepam (Ativan) 1 mg IVP Q4HR PRN; Protocol PRN Reason: Anxiety Stop: 10/12/17 04:47 Methylprednisolone Sodium Succinate (Solu-Medrol) 40 mg IVP Q12HR [facility] Stop: 10/13/17 20:59 Miscellaneous (Vancomycin Iv Per Pharmacy) 1 ea PRN PRN PRN Reason: PROTOCOL Stop: 10/11/17 20:10 Miscellaneous (Probiotic Screen) 1 ea PRN PRN PRN Reason: PROTOCOL Stop: 10/13/17 08:29 Mupirocin (Bactroban Oint) 1 appl NS BID [facility] Stop: 08/18/17 17:01 Last Admin: 08/14/17 17:42 Dose: 1 appl Pantoprazole Sodium (Protonix) 40 mg IVP DAILY [facility] Stop: 10/13/17 08:59 Last Admin: 08/14/17 08:25 Dose: 40 mg General: Alert Cardiovascular: Regular rate Lungs: Other (rales) Abdomen: Soft Extremities: Edema - Procedures Procedures: Procedures Procedure Code Date ASSISTANCE WITH RESPIRATORY VENTILATION, <24 HRS, CPAP [id number] 08/12/17 POS AIRWAY PRESSURE CPAP 74592 08/12/17 Assessment/Plan - Assessment Assessment: Altered mental state better Acute on chronic respiratory failure Acute COPD exacerbation HTN Nicotine dependancy - Plan Plan: Continue current antibiotics IV solumedrol Oxygen Bronchodilator Monitor vitals Monitor pul status Plan of care discussed with nursing staff
[2017-08-14] MEDS: Atorvastatin Calcium 10 MG TAB PO SCH (22:14)
[2017-08-14] MEDS: methylPREDNISolone SS 40 mg Vial IVP SCH (22:15)
[2017-08-15] MEDS: Albuterol Nebulizer 2.5mg/3mL HHN SCH ×3 (00:58→19:13)
[2017-08-15 06:54] LABS: ANION GAP 10.6 (7.0-16.0); BUN - UREA NITROGEN 27 mg/dL (7-25); CALCIUM SERUM 8.9 mg/dL (8.6-10.3); CARBON DIOXIDE 33.5 mEq/L (21.0-31.0); CHLORIDE 97 mEq/L (98-107); GFR AFRICAN-AMERICAN > 60.0 ml/min (>90); GLUCOSE 252 mg/dL (70-105); POTASSIUM SERUM 4.1 mEq/L (3.5-5.1); SODIUM SERUM 137 mEq/L (136-145)
[2017-08-15] MEDS: Azithromycin 250 MG in Sodium Chloride 0.9% 250 ML IV SCH (09:09)
[2017-08-15] MEDS: Lactobacillus Rhamnosus GG 15 Billion CFU CAP.SPRINK PO SCH (09:11)
[2017-08-15] MEDS: Fluticasone Propionate 0.05mg/Actuation 16gm Nasal Spray NS SCH (09:11)
[2017-08-15] MEDS: methylPREDNISolone SS 40 mg Vial IVP SCH ×2 (09:11→20:57)
[2017-08-15] MEDS: Escitalopram Oxalate 5 mg Tab PO SCH (09:11)
[2017-08-15] MEDS: Fenofibrate, Micronized 134 mg Cap PO SCH (09:12)
[2017-08-15] MEDS: Aspirin 81mg Chewable Tab PO SCH (09:12)
[2017-08-15] MEDS: Polyvinyl Alcohol Ophth Soln 15 mL Bottle EACH EYE PRN ×2 (09:12→16:17)
--- NOTE | 2017-08-15 09:43 | Diagnostic Imaging Report ---
Exam: Portable chest x-ray. HISTORY: Shortness of breath. Findings: Portable upright examination of the chest at 0908 hours reviewed compared to prior study of 08/12/2017 demonstrates cardiomegaly. Mild congestion is present. There is evidence for left basilar infiltrate superimposed effusion. Bony thorax is intact. IMPRESSION: 1. Cardiomegaly mild congestion 2. Left basilar infiltrate and effusion follow-up examination recommended
[2017-08-15] MEDS: Vancomycin HCl 1.5 GM in Sodium Chloride 0.9% 500 ML IV SCH ×2 (12:22→22:48)
[2017-08-15 15:57] LABS: A1C % 8.3 % (4.0-6.0)
--- NOTE | 2017-08-15 17:42 | Infectious Disease Prog Note ---
Infectious Disease Subjective - Review of Systems Service Date: 08/15/17 Subjective: doing well. Infectious Disease Objective - Results Result Diagrams: 08/14/17 06:15 08/15/17 06:21 Recent Labs: Laboratory Last Values WBC 23.7 Th/cmm (4.8-10.8) H* D 08/14/17 06:15 RBC 4.59 Mil/cmm (3.80-5.20) 08/14/17 06:15 Hgb 12.1 gm/dL (12-16) 08/14/17 06:15 Hct 38.0 % (41.0-60) L 08/14/17 06:15 MCV 82.9 fl (81-100) 08/14/17 06:15 MCH 26.3 pg (27.0-31.0) L 08/14/17 06:15 MCHC Differential 31.7 pg (28.0-36.0) 08/14/17 06:15 RDW 16.1 % (11.5-20.0) 08/14/17 06:15 Plt Count 436 Th/cmm (150-400) H 08/14/17 06:15 MPV 7.1 fl 08/14/17 06:15 Neutrophils % VENDING MACHINE FILLER 08/14/17 06:15 Band Neutrophils % 3 % (0-10) 08/14/17 06:15 Lymphocytes % VENDING MACHINE FILLER 08/14/17 06:15 Monocytes % VENDING MACHINE FILLER 08/14/17 06:15 Eosinophils % VENDING MACHINE FILLER 08/14/17 06:15 Basophils % VENDING MACHINE FILLER 08/14/17 06:15 Neutrophils (Manual) 88 % (40-80) H 08/14/17 06:15 Lymphocytes 7 % (20-50) L 08/14/17 06:15 Monocytes 2 % (2-10) 08/14/17 06:15 PT 10.1 SECONDS (9.5-11.5) 08/12/17 14:01 INR 0.97 (0.5-1.4) 08/12/17 14:01 PTT (Actin FS) 23.7 SECONDS (26.0-38.0) L 08/12/17 14:01 Specimen Source Arterial 08/13/17 17:32 Sample Site Left Radial 08/13/17 17:32 pH 7.32 (7.35-7.45) L 08/13/17 17:32 pCO2 49.0 mmHg (35.0-45.0) H 08/13/17 17:32 pO2 68.0 mmHg (80.0-100.0) L 08/13/17 17:32 HCO3 23.7 mEq/L (20.0-26.0) 08/13/17 17:32 Base Excess -1.4 mEq/L (-3.0-3.0) 08/13/17 17:32 O2 Saturation 92.0 % (92.0-100.0) 08/13/17 17:32 [place] Test Yes 08/13/17 17:32 Vent Rate 12 08/13/17 17:32 Inspired O2 50 08/13/17 17:32 Tidal Volume n/a 08/13/17 17:32 PEEP n/a 08/13/17 17:32 Pressure (ins/psv/peep) 6 08/13/17 17:32 Critical Value [place] 08/13/17 17:32 Sodium 137 mEq/L (136-145) 08/15/17 06:21 Potassium 4.1 mEq/L (3.5-5.1) 08/15/17 06:21 Chloride 97 mEq/L (98-107) L 08/15/17 06:21 Carbon Dioxide 33.5 mEq/L (21.0-31.0) H 08/15/17 06:21 Anion Gap 10.6 (7.0-16.0) 08/15/17 06:21 BUN 27 mg/dL (7-25) H 08/15/17 06:21 Creatinine 1.0 mg/dL (0.6-1.2) 08/15/17 06:21 Est GFR ( Amer) > 60.0 ml/min (>90) 08/15/17 06:21 Est GFR (Non-Af Amer) 59.0 ml/min 08/15/17 06:21 BUN/Creatinine Ratio 27.0 08/15/17 06:21 Glucose 252 mg/dL (70-105) H 08/15/17 06:21 Hemoglobin A1c % 8.3 % (4.0-6.0) H 08/15/17 06:21 Whole Bld Lactic Acid 1.80 mmol/L (0.60-1.99) 08/12/17 14:01 Calcium 8.9 mg/dL (8.6-10.3) 08/15/17 06:21 Total Bilirubin 0.4 mg/dL (0.3-1.0) 08/13/17 06:17 AST 27 U/L (13-39) 08/13/17 06:17 ALT 32 U/L (7-52) 08/13/17 06:17 Alkaline Phosphatase 55 U/L (34-104) 08/13/17 06:17 Creatine Kinase 15 U/L (30-223) L 08/12/17 14:01 Troponin I < 0.01 ng/mL (0.01-0.05) L 08/12/17 14:01 Total Protein 6.5 gm/dL (6.0-8.3) 08/13/17 06:17 Albumin 3.0 gm/dL (3.7-5.3) L 08/13/17 06:17 Globulin 3.5 gm/dL 08/13/17 06:17 Albumin/Globulin Ratio 0.9 (1.0-1.8) L 08/13/17 06:17 - Physical Exam Vitals and I&O: Vital Signs Temp 97.8 F 08/15/17 15:52 Pulse 88 08/15/17 15:52 Resp 19 08/15/17 15:52 BP 134/68 08/15/17 16:22 Pulse Ox 96 08/15/17 15:52 Intake & Output 08/14/17 08/15/17 08/15/17 18:59 06:59 18:59 Intake Total 850 1150 850 Balance 850 1150 850 Weight (lbs) 122.924 kg Intake: Intake, IV Amount 850 700 850 Azithromycin 250 mg In 250 250 Sodium Chloride 0.9% 250 ml @ 250 mls/hr IV Q24HR [facility] Rx#:[id number] Piperacillin Sodium/ 100 200 100 Tazobact 4.5 gm In Sodium Chloride 0.9% 100 ml @ 100 mls/hr IV Q8HR [facility] Rx #:[id number] Vancomycin HCl 1.5 gm In 500 500 500 Sodium Chloride 0.9% 500 ml @ 250 mls/hr IV Q12H [facility] Rx#:[id number] Oral 450 Other: # Voids 2 Stool Characteristics Soft Soft Formed Formed Weight Source Bedscale Active Medications: Current Medications Albuterol Sulfate (Albuterol 2.5mg/3ml Neb Ud) 2.5 mg HHN Q2HRT PRN PRN Reason: sob Stop: 10/11/17 19:57 Last Admin: 08/13/17 09:50 Dose: 2.5 mg Albuterol Sulfate (Albuterol 2.5mg/3ml Neb Ud) 2.5 mg HHN Q6HRT NIMISHA Stop: 10/11/17 19:59 Last Admin: 08/15/17 12:16 Dose: 2.5 mg Amlodipine Besylate (Norvasc) 10 mg PO DAILY NIMISHA Stop: 10/12/17 08:59 Last Admin: 08/15/17 09:12 Dose: 10 mg Artificial Tears (Artificial Tears Ophth Soln) 1 drop EACH EYE BID PRN PRN Reason: DRY EYES Stop: 10/12/17 08:12 Last Admin: 08/15/17 16:17 Dose: 1 drop Aspirin (Aspirin Chewable) 81 mg PO DAILY NIMISHA Stop: 10/12/17 08:59 Last Admin: 08/15/17 09:12 Dose: 81 mg Atorvastatin Calcium (Lipitor) 20 mg PO HS NIMISHA Stop: 10/11/17 20:59 Last Admin: 08/14/17 22:14 Dose: 20 mg Escitalopram Oxalate (Lexapro) 5 mg PO DAILY NIMISHA PRN Reason: Protocol Stop: 10/12/17 08:59 Last Admin: 08/15/17 09:11 Dose: 5 mg Fenofibrate (Tricor) 134 mg PO DAILY NIMISHA Stop: 10/12/17 08:59 Last Admin: 08/15/17 09:12 Dose: 134 mg Fluticasone Propionate (Flonase) 1 spr NS DAILY NIMISHA Stop: 10/12/17 08:59 Last Admin: 08/15/17 09:11 Dose: 1 spr Furosemide (Lasix) 40 mg IVP BID NIMISHA Stop: 10/12/17 18:03 Last Admin: 08/15/17 16:22 Dose: 40 mg Gabapentin (Neurontin) 300 mg PO TID@0800,1600,2100 N[facility] Stop: 10/11/17 20:59 Last Admin: 08/15/17 16:18 Dose: 300 mg Gabapentin (Neurontin) 200 mg PO HS NIMISHA Stop: 10/11/17 20:59 Last Admin: 08/14/17 22:15 Dose: 200 mg Heparin Sodium (Porcine) (Heparin) 5,000 units SUBQ Q12HR NIMIS[facility] Stop: 10/12/17 20:59 Last Admin: 08/15/17 09:10 Dose: 5,000 units Azithromycin 250 mg/ Sodium (Chloride) 250 mls @ 250 mls/hr IV Q24HR [facility] Stop: 10/13/17 08:59 Last Infusion: 08/15/17 10:09 Dose: Infused Piperacillin Sod/Tazobactam (Sod 4.5 gm/ Sodium Chloride) 100 mls @ 100 mls/hr IV Q8HR N[facility] Stop: 10/12/17 20:59 Last Infusion: 08/15/17 14:28 Dose: Infused Vancomycin HCl 1.5 gm/ Sodium (Chloride) 500 mls @ 250 mls/hr IV Q12H [facility] Stop: 10/13/17 10:59 Last Infusion: 08/15/17 14:22 Dose: Infused Lactobacillus Rhamnosus (Culturelle 15b) 1 each PO DAILY NIMISHA Stop: 10/13/17 08:59 Last Admin: 08/15/17 09:11 Dose: 1 each Lorazepam (Ativan) 1 mg IVP Q4HR PRN; Protocol PRN Reason: Anxiety Stop: 10/12/17 04:47 Methylprednisolone Sodium Succinate (Solu-Medrol) 40 mg IVP Q12HR N[facility]IS[facility] Stop: 10/13/17 20:59 Last Admin: 08/15/17 09:11 Dose: 40 mg Miscellaneous (Vancomycin Iv Per Pharmacy) 1 [facility] PRN PRN PRN Reason: PROTOCOL Stop: 10/11/17 20:10 Miscellaneous (Probiotic Screen) 1 [facility] PRN PRN PRN Reason: PROTOCOL Stop: 10/13/17 08:29 Mupirocin (Bactroban Oint) 1 appl NS BID NIMISHA Stop: 08/18/17 17:01 Last Admin: 08/15/17 16:17 Dose: 1 appl Pantoprazole Sodium (Protonix) 40 mg IVP DAILY NIMISHA Stop: 10/13/17 08:59 Last Admin: 08/15/17 09:11 Dose: 40 mg General: no acute distress, well developed, well nourished HEENT: atraumatic, normocephalic, PERRLA, EOMI Neck: supple, no thyromegaly, no lymphadenopathy Cardiovascular: S1S2, regular Lungs: clear to auscultation bilaterally, clear to percussion Abdomen: soft, no tender, no distended, no mass Extremities: edema, other (Left leg redness has almost resolved , swelling persists.), no cyanosis, no clubbing Neurological: awake, alert, oriented Skin: intact - Procedures Procedures: Procedures Procedure Code Date ASSISTANCE WITH RESPIRATORY VENTILATION, <24 HRS, CPAP [id number] 08/12/17 POS AIRWAY PRESSURE CPAP [id number] 08/12/17 Infectious Disease Assmt/Plan - Assessment Assessment: 1.Leukoytosis, likely 2/2 steroids. 2. Cellultis of left leg. US of left leg neg for DVT. 3. Pneumonia, LLL ? CAP versus HCAP versus atypical. 4. hypercapneic, hypoxic respiratory failure. 5. COPD with exacerbation. 6. WYATT. 7. Obesity. 8. DM2. 9. HTN. 10 ? Cor pulmonale. 11. Obesity. 12. H/O CVA. 13. Neutrophilia. 14. Thrombocytosis. 15. Pitting edemao of legs. 16. CHF. 17. Respiratory acidosis. PH 7.32. 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 19. DVT prophylaxis. 20. PPI prophylaxis. - Plan Plan: Will continue vacnomycin, zithromax and Zosyn, Lasix IV to 40mg bid. continue Solumedrol 40 mg IV q12. Monitor telemetry for hypercapneic, hypoxic respiratoy failure. Bipap. DVT prophylaxis. PPI prophylaxis. [place] Wrap.
[2017-08-15] MEDS: Atorvastatin Calcium 10 MG TAB PO SCH (20:57)
[2017-08-16] MEDS: Albuterol Nebulizer 2.5mg/3mL HHN SCH ×4 (00:06→18:26)
--- NOTE | 2017-08-16 00:54 | Progress Notes ---
DATE: 08/15/[address] Allen. Case was discussed with staff of the patient, reviewed records. This 66-year-old female who was admitted because of swelling in her left lower extremity has been anxious, depressed. She has been taking Lexapro 2.5 mg, has not been helping much. She has been feeling hopeless especially with her medical issues. No intent to harm herself or anybody. No auditory or visual hallucinations. She lives with her daughter and there are no issues. No history of prior psychiatric treatment. The patient seems to be doing more or less the same; still some depression, anxious because of her medical condition. Dr. Allen increased her Lexapro to 5 mg a day on 08/13/2017 with no side effects, no sedation, no nausea. The patient denies any current intent to harm herself in bed. She denies any auditory or visual hallucination, paranoia or any side effects with the medications. Sleeping better, eating better. Thank you very much for allowing me to participate in the care of this most interesting lady. [facility]# [id number]
[2017-08-16 06:55] LABS: HEMATOCRIT 36.2 % (41.0-60); HEMOGLOBIN 11.9 gm/dL (12-16); MANUAL DIFF REQUIRED? YES; MEAN CELL VOLUME 82.3 fl (81-100); MEAN CORPUSCULAR HGB CONC 32.8 pg (28.0-36.0); MONOCYTE ABSOLUTE 0.3 Th/cmm (0.3-1.0); NEUTROPHILE ABSOLUTE 14.6 Th/cmm (1.8-8.0); PLATELET COUNT 511 Th/cmm (150-400); RED CELL DISTRIBUTION WIDTH 15.9 % (11.5-20.0)
[2017-08-16 06:59] LABS: WHITE BLOOD COUNT 15.9 Th/cmm (4.8-10.8)
[2017-08-16 07:12] LABS: ALB/GLOB RATIO 0.9 (1.0-1.8); ALKALINE PHOSPHATASE 44 U/L (34-104); ANION GAP 9.7 (7.0-16.0); BILIRUBIN,TOTAL 0.4 mg/dL (0.3-1.0); BUN - UREA NITROGEN 33 mg/dL (7-25); CALCIUM SERUM 8.9 mg/dL (8.6-10.3); CARBON DIOXIDE 34.6 mEq/L (21.0-31.0); CHLORIDE 97 mEq/L (98-107); GFR AFRICAN-AMERICAN > 60.0 ml/min (>90); GLUCOSE 255 mg/dL (70-105); POTASSIUM SERUM 4.3 mEq/L (3.5-5.1); SGOT 7 U/L (13-39); SGPT/ALT 15 U/L (7-52); SODIUM SERUM 137 mEq/L (136-145); TOTAL PROTEIN,SERUM 6.3 gm/dL (6.0-8.3)
[2017-08-16 08:00] LABS: LYMPHOCYTE 5 % (20-50); MONOCYTE 2 % (2-10); NEUTROPHILS 93 % (40-80); TOTAL CELLS COUNTED 100
[2017-08-16 08:01] LABS: PLATELET ESTIMATE INCREASED PLATELETS (NORMAL)
[2017-08-16] MEDS: Fenofibrate, Micronized 134 mg Cap PO SCH (09:42)
[2017-08-16] MEDS: Lactobacillus Rhamnosus GG 15 Billion CFU CAP.SPRINK PO SCH (09:42)
[2017-08-16] MEDS: Aspirin 81mg Chewable Tab PO SCH (09:42)
[2017-08-16] MEDS: Escitalopram Oxalate 5 mg Tab PO SCH (09:42)
[2017-08-16] MEDS: Fluticasone Propionate 0.05mg/Actuation 16gm Nasal Spray NS SCH (09:43)
[2017-08-16] MEDS: methylPREDNISolone SS 40 mg Vial IVP SCH ×2 (09:43→21:11)
[2017-08-16] MEDS: Azithromycin 250 MG in Sodium Chloride 0.9% 250 ML IV SCH (10:02)
--- NOTE | 2017-08-16 13:50 | Infectious Disease Prog Note ---
Infectious Disease Subjective - Review of Systems Service Date: 08/16/17 Subjective: doing well. Infectious Disease Objective - Results Result Diagrams: 08/16/17 06:39 08/16/17 06:39 Recent Labs: Laboratory Last Values WBC 15.9 Th/cmm (4.8-10.8) H 08/16/17 06:39 RBC 4.40 Mil/cmm (3.80-5.20) 08/16/17 06:39 Hgb 11.9 gm/dL (12-16) L 08/16/17 06:39 Hct 36.2 % (41.0-60) L 08/16/17 06:39 MCV 82.3 fl (81-100) 08/16/17 06:39 MCH 27.0 pg (27.0-31.0) 08/16/17 06:39 MCHC Differential 32.8 pg (28.0-36.0) 08/16/17 06:39 RDW 15.9 % (11.5-20.0) 08/16/17 06:39 Plt Count 511 Th/cmm (150-400) H 08/16/17 06:39 MPV 7.0 fl 08/16/17 06:39 Neutrophils % HEAVY THREADER 08/14/17 06:15 Band Neutrophils % 3 % (0-10) 08/14/17 06:15 Lymphocytes % HEAVY THREADER 08/14/17 06:15 Monocytes % HEAVY THREADER 08/14/17 06:15 Eosinophils % HEAVY THREADER 08/14/17 06:15 Basophils % HEAVY THREADER 08/14/17 06:15 Neutrophils (Manual) 93 % (40-80) H 08/16/17 06:39 Lymphocytes 5 % (20-50) L 08/16/17 06:39 Monocytes 2 % (2-10) 08/16/17 06:39 Platelet Estimate INCREASED PLATELETS (NORMAL) 08/16/17 06:39 PT 10.1 SECONDS (9.5-11.5) 08/12/17 14:01 INR 0.97 (0.5-1.4) 08/12/17 14:01 PTT (Actin FS) 23.7 SECONDS (26.0-38.0) L 08/12/17 14:01 Specimen Source Arterial 08/13/17 17:32 Sample Site Left Radial 08/13/17 17:32 pH 7.32 (7.35-7.45) L 08/13/17 17:32 pCO2 49.0 mmHg (35.0-45.0) H 08/13/17 17:32 pO2 68.0 mmHg (80.0-100.0) L 08/13/17 17:32 HCO3 23.7 mEq/L (20.0-26.0) 08/13/17 17:32 Base Excess -1.4 mEq/L (-3.0-3.0) 08/13/17 17:32 O2 Saturation 92.0 % (92.0-100.0) 08/13/17 17:32 [place]if[place] Test Yes 08/13/17 17:32 Vent Rate 12 08/13/17 17:32 Inspired O2 50 08/13/17 17:32 Tidal Volume n/a 08/13/17 17:32 PEEP n/a 08/13/17 17:32 Pressure (ins/psv/peep) 6 08/13/17 17:32 Critical Value [place] 08/13/17 17:32 Sodium 137 mEq/L (136-145) 08/16/17 06:39 Potassium 4.3 mEq/L (3.5-5.1) 08/16/17 06:39 Chloride 97 mEq/L (98-107) L 08/16/17 06:39 Carbon Dioxide 34.6 mEq/L (21.0-31.0) H 08/16/17 06:39 Anion Gap 9.7 (7.0-16.0) 08/16/17 06:39 BUN 33 mg/dL (7-25) H 08/16/17 06:39 Creatinine 1.0 mg/dL (0.6-1.2) 08/16/17 06:39 Est GFR ( Amer) > 60.0 ml/min (>90) 08/16/17 06:39 Est GFR (Non-Af Amer) 59.0 ml/min 08/16/17 06:39 BUN/Creatinine Ratio 33.0 08/16/17 06:39 Glucose 255 mg/dL (70-105) H 08/16/17 06:39 Hemoglobin A1c % 8.3 % (4.0-6.0) H 08/15/17 06:21 Whole Bld Lactic Acid 1.80 mmol/L (0.60-1.99) 08/12/17 14:01 Calcium 8.9 mg/dL (8.6-10.3) 08/16/17 06:39 Total Bilirubin 0.4 mg/dL (0.3-1.0) 08/16/17 06:39 AST 7 U/L (13-39) L 08/16/17 06:39 ALT 15 U/L (7-52) 08/16/17 06:39 Alkaline Phosphatase 44 U/L (34-104) 08/16/17 06:39 Creatine Kinase 15 U/L (30-223) L 08/12/17 14:01 Troponin I < 0.01 ng/mL (0.01-0.05) L 08/12/17 14:01 Total Protein 6.3 gm/dL (6.0-8.3) 08/16/17 06:39 Albumin 3.0 gm/dL (3.7-5.3) L 08/16/17 06:39 Globulin 3.3 gm/dL 08/16/17 06:39 Albumin/Globulin Ratio 0.9 (1.0-1.8) L 08/16/17 06:39 Vancomycin Trough 31.4 ug/mL (5-10) H 08/16/17 10:00 - Physical Exam Vitals and I&O: Vital Signs Temp 97.6 F 08/16/17 11:56 Pulse 82 08/16/17 12:30 Resp 16 08/16/17 12:30 BP 133/67 08/16/17 11:56 Pulse Ox 95 08/16/17 12:30 Intake & Output 08/15/17 08/16/17 08/16/17 18:59 06:59 18:59 Intake Total 850 608.333 100 Output Total 0 Balance 850 608.333 100 Weight (lbs) 119.748 kg Intake: Intake, IV Amount 850 28.333 100 Azithromycin 250 mg In 250 Sodium Chloride 0.9% 250 ml @ 250 mls/hr IV Q24HR [facility] Rx#:[id number] Piperacillin Sodium/ 100 28.333 100 Tazobact 4.5 gm In Sodium Chloride 0.9% 100 ml @ 100 mls/hr IV Q8HR [facility] Rx #:[id number] Vancomycin HCl 1.5 gm In 500 Sodium Chloride 0.9% 500 ml @ 250 mls/hr IV Q12H [facility] Rx#:[id number] Oral 580 Output: Urine/Stool Mix 0 Other: # Voids 3 # Bowel Movements 0 Weight Source Bedscale Active Medications: Current Medications Albuterol Sulfate (Albuterol 2.5mg/3ml Neb Ud) 2.5 mg HHN Q2HRT PRN PRN Reason: sob Stop: 10/11/17 19:57 Last Admin: 08/13/17 09:50 Dose: 2.5 mg Albuterol Sulfate (Albuterol 2.5mg/3ml Neb Ud) 2.5 mg HHN Q6HRT [facility] Stop: 10/11/17 19:59 Last Admin: 08/16/17 12:29 Dose: 2.5 mg Amlodipine Besylate (Norvasc) 10 mg PO DAILY [facility] Stop: 10/12/17 08:59 Last Admin: 08/16/17 09:42 Dose: 10 mg Artificial Tears (Artificial Tears Ophth Soln) 1 drop EACH EYE BID PRN PRN Reason: DRY EYES Stop: 10/12/17 08:12 Last Admin: 08/15/17 16:17 Dose: 1 drop Aspirin (Aspirin Chewable) 81 mg PO DAILY [facility] Stop: 10/12/17 08:59 Last Admin: 08/16/17 09:42 Dose: 81 mg Atorvastatin Calcium (Lipitor) 20 mg PO HS [facility] Stop: 10/11/17 20:59 Last Admin: 08/15/17 20:57 Dose: 20 mg Escitalopram Oxalate (Lexapro) 5 mg PO DAILY [facility] PRN Reason: Protocol Stop: 10/12/17 08:59 Last Admin: 08/16/17 09:42 Dose: 5 mg Fenofibrate (Tricor) 134 mg PO DAILY [facility] Stop: 10/12/17 08:59 Last Admin: 08/16/17 09:42 Dose: 134 mg Fluticasone Propionate (Flonase) 1 spr NS DAILY [facility] Stop: 10/12/17 08:59 Last Admin: 08/16/17 09:43 Dose: 1 spr Furosemide (Lasix) 40 mg IVP BID [facility] Stop: 10/15/17 09:29 Last Admin: 08/16/17 09:42 Dose: 40 mg Gabapentin (Neurontin) 300 mg PO TID@0800,1600,2100 [facility] Stop: 10/11/17 20:59 Last Admin: 08/16/17 09:42 Dose: 300 mg Gabapentin (Neurontin) 200 mg PO HS [facility] Stop: 10/11/17 20:59 Last Admin: 08/15/17 20:57 Dose: 200 mg Heparin Sodium (Porcine) (Heparin) 5,000 units SUBQ Q12HR [facility] Stop: 10/12/17 20:59 Last Admin: 08/16/17 09:38 Dose: 5,000 units Azithromycin 250 mg/ Sodium (Chloride) 250 mls @ 250 mls/hr IV Q24HR [facility] Stop: 10/13/17 08:59 Last Admin: 08/16/17 10:02 Dose: 165 mls/hr Piperacillin Sod/Tazobactam (Sod 4.5 gm/ Sodium Chloride) 100 mls @ 100 mls/hr IV Q8HR [facility] Stop: 10/12/17 20:59 Last Admin: 08/16/17 12:36 Dose: 100 mls/hr Vancomycin HCl 1 gm/ Sodium (Chloride) 250 mls @ 165 mls/hr IV Q12HR [facility] Stop: 10/15/17 20:59 Lactobacillus Rhamnosus (Culturelle 15b) 1 each PO DAILY [facility] Stop: 10/13/17 08:59 Last Admin: 08/16/17 09:42 Dose: 1 each Lorazepam (Ativan) 1 mg IVP Q4HR PRN; Protocol PRN Reason: Anxiety Stop: 10/12/17 04:47 Last Admin: 08/15/17 21:15 Dose: 1 mg Methylprednisolone Sodium Succinate (Solu-Medrol) 40 mg IVP Q12HR [facility] Stop: 10/13/17 20:59 Last Admin: 08/16/17 09:43 Dose: 40 mg Miscellaneous (Vancomycin Iv Per Pharmacy) 1 ea MC PRN PRN PRN Reason: PROTOCOL Stop: 10/11/17 20:10 Miscellaneous (Probiotic Screen) 1 ea MC PRN PRN PRN Reason: PROTOCOL Stop: 10/13/17 08:29 Mupirocin (Bactroban Oint) 1 appl NS BID [facility] Stop: 08/18/17 17:01 Last Admin: 08/16/17 09:43 Dose: 1 appl Pantoprazole Sodium (Protonix) 40 mg IVP DAILY [facility] Stop: 10/13/17 08:59 Last Admin: 08/16/17 09:43 Dose: 40 mg General: no acute distress, well developed, well nourished HEENT: atraumatic, normocephalic, PERRLA Neck: supple, no thyromegaly Cardiovascular: S1S2, regular Lungs: clear to auscultation bilaterally, clear to percussion Abdomen: soft, bowel sounds, no tender, no distended, no mass, no rebound, no hepatomegaly, no splenomegaly Extremities: no cyanosis, no clubbing, no edema Neurological: awake, alert, oriented, CN 2-12 intact Skin: intact - Procedures Procedures: Procedures Procedure Code Date ASSISTANCE WITH RESPIRATORY VENTILATION, <24 HRS, CPAP 0K81351 08/12/17 POS AIRWAY PRESSURE CPAP 48419 08/12/17 Infectious Disease Assmt/Plan - Assessment Assessment: 1.Leukoytosis, likely 2/2 steroids. 2. Cellultis of left leg. US of left leg neg for DVT. 3. Pneumonia, LLL ? CAP versus HCAP versus atypical. 4. hypercapneic, hypoxic respiratory failure. 5. COPD with exacerbation. 6. WYATT. 7. Obesity. 8. DM2. 9. HTN. 10 ? Cor pulmonale. 11. Obesity. 12. H/O CVA. 13. Neutrophilia. 14. Thrombocytosis. 15. Pitting edemao of legs. 16. CHF. 17. Respiratory acidosis. PH 7.32. 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 19. DVT prophylaxis. 20. PPI prophylaxis. - Plan Plan: Will continue vacnomycin, zithromax and Zosyn, Lasix IV to 40mg bid. continue Solumedrol 40 mg IV q12. Monitor telemetry for hypercapneic, hypoxic respiratoy failure. Bipap. DVT prophylaxis. PPI prophylaxis. Juan Diego Wrap.
[2017-08-16] MEDS: Atorvastatin Calcium 10 MG TAB PO SCH (21:11)
--- NOTE | 2017-08-16 22:44 | Progress Notes ---
DATE: 08/16/2017 Case was discussed with staff of the patient, reviewed records. The patient today was able to feed herself. The staff report, yesterday she was unable to sleep at night; however, she is sleeping during the day, so it is hard to give medication before or not sleeping in the right cycle. The patient also get anxious. She has high heart rate and they gave her Ativan and that helped. She seems to be responding well to redirection and cooperative with the staff in general. The patient denies any current intent to harm herself or anybody. No auditory or visual hallucinations. Thank you very much for allowing me to participate in the care of this most interesting lady. JOB# [id number]
--- NOTE | 2017-08-16 22:53 | Progress Notes ---
DATE: 08/16/2017 IDENTIFICATION: A 66-year-old female. The patient seen and examined. The patient denies any chest pain, increasing cough or shortness of breath. The patient denies any nausea or vomiting. OBJECTIVE: VITAL SIGNS: Temperature 98, pulse is 74, respiratory rate is 16, blood pressure 133/67. HEENT: No facial asymmetry. NECK: Supple, no JVD. HEART: Regular, no murmur. CHEST: Lung equal in expansion. No wheezing, no crackles. ABDOMEN: Soft. EXTREMITIES: No edema. CLINICAL IMPRESSION: 1. Left leg cellulitis. 2. Pneumonia, left lower lobe. 3. Chronic obstructive pulmonary disease. 4. Obesity. 5. Diabetes. 6. Hypertension. 7. Degenerative joint disease. PLAN: 1. IV antibiotic. 2. IV steroid. 3. Oxygen. 4. Nebulizer treatment. 5. BiPAP. 6. General nursing care. 7. Follow lab. 8. Follow consult recommendation. 9. Care plan reviewed and discussed. JOB# [id number]
[2017-08-17] MEDS: Albuterol Nebulizer 2.5mg/3mL HHN SCH ×3 (00:27→12:20)
[2017-08-17 07:02] LABS: ALB/GLOB RATIO 0.9 (1.0-1.8); ALBUMIN 3.2 gm/dL (3.7-5.3); ANION GAP 11.8 (7.0-16.0); BILIRUBIN,TOTAL 0.5 mg/dL (0.3-1.0); CALCIUM SERUM 9.1 mg/dL (8.6-10.3); CARBON DIOXIDE 34.3 mEq/L (21.0-31.0); CREATININE - SERUM 1.2 mg/dL (0.6-1.2); GFR AFRICAN-AMERICAN 57.8 ml/min (>90); GFR NON AFRICAN-AMERICAN 47.8 ml/min; POTASSIUM SERUM 4.1 mEq/L (3.5-5.1); TOTAL PROTEIN,SERUM 6.6 gm/dL (6.0-8.3)
[2017-08-17 07:07] LABS: % EOSINOPHILS 0.2 % (0.0-5.0); % LYMPHOCYTES 9.6 % (20.0-50.0); % MONOCYTES 3.4 % (2.0-10.0); % NEUTROPHILS 86.8 % (40.0-80.0); HEMATOCRIT 38.2 % (41.0-60); HEMOGLOBIN 12.4 gm/dL (12-16); LYMPHOCYTE ABSOLUTE 1.4 Th/cmm (1.5-3.0); MEAN CELL VOLUME 81.9 fl (81-100); MEAN CORPUSCULAR HEMOGLOBIN 26.5 pg (27.0-31.0); MEAN CORPUSCULAR HGB CONC 32.4 pg (28.0-36.0); MEAN PLATELET VOLUME 6.9 fl; MONOCYTE ABSOLUTE 0.5 Th/cmm (0.3-1.0); NEUTROPHILE ABSOLUTE 12.6 Th/cmm (1.8-8.0); PLATELET COUNT 574 Th/cmm (150-400); RED BLOOD COUNT 4.67 Mil/cmm (3.80-5.20); RED CELL DISTRIBUTION WIDTH 15.4 % (11.5-20.0)
[2017-08-17 07:10] LABS: WHITE BLOOD COUNT 14.5 Th/cmm (4.8-10.8)
[2017-08-17] MEDS: Lactobacillus Rhamnosus GG 15 Billion CFU CAP.SPRINK PO SCH (09:26)
[2017-08-17] MEDS: methylPREDNISolone SS 40 mg Vial IVP SCH (09:26)
[2017-08-17] MEDS: Aspirin 81mg Chewable Tab PO SCH (09:28)
[2017-08-17] MEDS: Escitalopram Oxalate 5 mg Tab PO SCH (09:28)
[2017-08-17] MEDS: Fenofibrate, Micronized 134 mg Cap PO SCH (09:28)
[2017-08-17] MEDS: Polyvinyl Alcohol Ophth Soln 15 mL Bottle EACH EYE PRN (09:41)
[2017-08-17] MEDS: Azithromycin 250 MG in Sodium Chloride 0.9% 250 ML IV SCH (09:41)
[2017-08-17] MEDS: Fluticasone Propionate 0.05mg/Actuation 16gm Nasal Spray NS SCH (09:41)
--- NOTE | 2017-08-17 11:07 | Infectious Disease Prog Note ---
Infectious Disease Subjective - Review of Systems Service Date: 08/17/17 Subjective: doing well. Infectious Disease Objective - Results Result Diagrams: 08/17/17 06:23 08/17/17 06:23 Recent Labs: Laboratory Last Values WBC 14.5 Th/cmm (4.8-10.8) H 08/17/17 06:23 RBC 4.67 Mil/cmm (3.80-5.20) 08/17/17 06:23 Hgb 12.4 gm/dL (12-16) 08/17/17 06:23 Hct 38.2 % (41.0-60) L 08/17/17 06:23 MCV 81.9 fl (81-100) 08/17/17 06:23 MCH 26.5 pg (27.0-31.0) L 08/17/17 06:23 MCHC Differential 32.4 pg (28.0-36.0) 08/17/17 06:23 RDW 15.4 % (11.5-20.0) 08/17/17 06:23 Plt Count 574 Th/cmm (150-400) H 08/17/17 06:23 MPV 6.9 fl 08/17/17 06:23 Neutrophils % 86.8 % (40.0-80.0) H 08/17/17 06:23 Band Neutrophils % 3 % (0-10) 08/14/17 06:15 Lymphocytes % 9.6 % (20.0-50.0) L 08/17/17 06:23 Monocytes % 3.4 % (2.0-10.0) 08/17/17 06:23 Eosinophils % 0.2 % (0.0-5.0) 08/17/17 06:23 Basophils % 0.0 % (0.0-2.0) 08/17/17 06:23 Neutrophils (Manual) 93 % (40-80) H 08/16/17 06:39 Lymphocytes 5 % (20-50) L 08/16/17 06:39 Monocytes 2 % (2-10) 08/16/17 06:39 Platelet Estimate INCREASED PLATELETS (NORMAL) 08/16/17 06:39 PT 10.1 SECONDS (9.5-11.5) 08/12/17 14:01 INR 0.97 (0.5-1.4) 08/12/17 14:01 PTT (Actin FS) 23.7 SECONDS (26.0-38.0) L 08/12/17 14:01 Specimen Source Arterial 08/13/17 17:32 Sample Site Left Radial 08/13/17 17:32 pH 7.32 (7.35-7.45) L 08/13/17 17:32 pCO2 49.0 mmHg (35.0-45.0) H 08/13/17 17:32 pO2 68.0 mmHg (80.0-100.0) L 08/13/17 17:32 HCO3 23.7 mEq/L (20.0-26.0) 08/13/17 17:32 Base Excess -1.4 mEq/L (-3.0-3.0) 08/13/17 17:32 O2 Saturation 92.0 % (92.0-100.0) 08/13/17 17:32 [place] Test Yes 08/13/17 17:32 Vent Rate 12 08/13/17 17:32 Inspired O2 50 08/13/17 17:32 Tidal Volume n/a 08/13/17 17:32 PEEP n/a 08/13/17 17:32 Pressure (ins/psv/peep) 6 08/13/17 17:32 Critical Value [place] 08/13/17 17:32 Sodium 134 mEq/L (136-145) L 08/17/17 06:23 Potassium 4.1 mEq/L (3.5-5.1) 08/17/17 06:23 Chloride 92 mEq/L (98-107) L 08/17/17 06:23 Carbon Dioxide 34.3 mEq/L (21.0-31.0) H 08/17/17 06:23 Anion Gap 11.8 (7.0-16.0) 08/17/17 06:23 BUN 39 mg/dL (7-25) H 08/17/17 06:23 Creatinine 1.2 mg/dL (0.6-1.2) 08/17/17 06:23 Est GFR ( Amer) 57.8 ml/min (>90) 08/17/17 06:23 Est GFR (Non-Af Amer) 47.8 ml/min 08/17/17 06:23 BUN/Creatinine Ratio 32.5 08/17/17 06:23 Glucose 250 mg/dL (70-105) H 08/17/17 06:23 Hemoglobin A1c % 8.3 % (4.0-6.0) H 08/15/17 06:21 Whole Bld Lactic Acid 1.80 mmol/L (0.60-1.99) 08/12/17 14:01 Calcium 9.1 mg/dL (8.6-10.3) 08/17/17 06:23 Total Bilirubin 0.5 mg/dL (0.3-1.0) 08/17/17 06:23 AST 8 U/L (13-39) L 08/17/17 06:23 ALT 13 U/L (7-52) 08/17/17 06:23 Alkaline Phosphatase 43 U/L (34-104) 08/17/17 06:23 Creatine Kinase 15 U/L (30-223) L 08/12/17 14:01 Troponin I < 0.01 ng/mL (0.01-0.05) L 08/12/17 14:01 Total Protein 6.6 gm/dL (6.0-8.3) 08/17/17 06:23 Albumin 3.2 gm/dL (3.7-5.3) L 08/17/17 06:23 Globulin 3.4 gm/dL 08/17/17 06:23 Albumin/Globulin Ratio 0.9 (1.0-1.8) L 08/17/17 06:23 Vancomycin Trough 31.4 ug/mL (5-10) H 08/16/17 10:00 Random Vancomycin 27.3 ug/mL (5.0-40.0) 08/17/17 06:23 - Physical Exam Vitals and I&O: Vital Signs Temp 96.8 F 08/17/17 08:00 Pulse 82 08/17/17 08:00 Resp 18 08/17/17 08:00 BP 117/80 08/17/17 09:28 Pulse Ox 92 08/17/17 08:00 Intake & Output 08/16/17 08/17/17 08/17/17 18:59 06:59 18:59 Intake Total 1550 690 Balance 1550 690 Weight (lbs) 119.975 kg 143.335 kg Intake: Intake, IV Amount 450 450 Azithromycin 250 mg In 250 Sodium Chloride 0.9% 250 ml @ 250 mls/hr IV Q24HR [facility] Rx#:[id number] Piperacillin Sodium/ 200 200 Tazobact 4.5 gm In Sodium Chloride 0.9% 100 ml @ 100 mls/hr IV Q8HR [facility] Rx #:[id number] Vancomycin HCl 1 gm In 250 Sodium Chloride 0.9% 250 ml @ 165 mls/hr IV Q12HR [facility] Rx#:[id number] Oral 1100 240 Other: # Voids 4 3 # Bowel Movements 2 2 Stool Characteristics Soft Weight Source Bedscale Bedscale Active Medications: Current Medications Albuterol Sulfate (Albuterol 2.5mg/3ml Neb Ud) 2.5 mg HHN Q2HRT PRN PRN Reason: sob Stop: 10/11/17 19:57 Last Admin: 08/13/17 09:50 Dose: 2.5 mg Albuterol Sulfate (Albuterol 2.5mg/3ml Neb Ud) 2.5 mg HHN Q6HRT [facility] Stop: 10/11/17 19:59 Last Admin: 08/17/17 07:05 Dose: 2.5 mg Amlodipine Besylate (Norvasc) 10 mg PO DAILY [facility] Stop: 10/12/17 08:59 Last Admin: 08/16/17 09:42 Dose: 10 mg Artificial Tears (Artificial Tears Ophth Soln) 1 drop EACH EYE BID PRN PRN Reason: DRY EYES Stop: 10/12/17 08:12 Last Admin: 08/17/17 09:41 Dose: 1 drop Aspirin (Aspirin Chewable) 81 mg PO DAILY [facility] Stop: 10/12/17 08:59 Last Admin: 08/17/17 09:28 Dose: 81 mg Atorvastatin Calcium (Lipitor) 20 mg PO HS [facility] Stop: 10/11/17 20:59 Last Admin: 08/16/17 21:11 Dose: 20 mg Escitalopram Oxalate (Lexapro) 5 mg PO DAILY [facility] PRN Reason: Protocol Stop: 10/12/17 08:59 Last Admin: 08/17/17 09:28 Dose: 5 mg Fenofibrate (Tricor) 134 mg PO DAILY [facility] Stop: 10/12/17 08:59 Last Admin: 08/17/17 09:28 Dose: 134 mg Fluticasone Propionate (Flonase) 1 spr NS DAILY [facility] Stop: 10/12/17 08:59 Last Admin: 08/17/17 09:41 Dose: 1 spr Furosemide (Lasix) 40 mg IVP BID [facility] Stop: 10/15/17 09:29 Last Admin: 08/17/17 09:28 Dose: 40 mg Gabapentin (Neurontin) 300 mg PO TID@0800,1600,2100 [facility] Stop: 10/11/17 20:59 Last Admin: 08/17/17 09:28 Dose: 300 mg Gabapentin (Neurontin) 200 mg PO HS [facility] Stop: 10/11/17 20:59 Last Admin: 08/16/17 21:11 Dose: 200 mg Heparin Sodium (Porcine) (Heparin) 5,000 units SUBQ Q12HR [facility] Stop: 10/12/17 20:59 Last Admin: 08/17/17 09:28 Dose: 5,000 units Azithromycin 250 mg/ Sodium (Chloride) 250 mls @ 250 mls/hr IV Q24HR [facility] Stop: 10/13/17 08:59 Last Admin: 08/17/17 09:41 Dose: 165 mls/hr Piperacillin Sod/Tazobactam (Sod 4.5 gm/ Sodium Chloride) 100 mls @ 100 mls/hr IV Q8HR [facility] Stop: 10/12/17 20:59 Last Infusion: 08/17/17 06:48 Dose: Infused Vancomycin HCl 1.5 gm/ Sodium (Chloride) 500 mls @ 250 mls/hr IV Q24H [facility] Stop: 10/16/17 14:59 Lactobacillus Rhamnosus (Culturelle 15b) 1 each PO DAILY [facility] Stop: 10/13/17 08:59 Last Admin: 08/17/17 09:26 Dose: 1 each Lorazepam (Ativan) 1 mg IVP Q4HR PRN; Protocol PRN Reason: Anxiety Stop: 10/12/17 04:47 Last Admin: 08/16/17 15:10 Dose: 1 mg Methylprednisolone Sodium Succinate (Solu-Medrol) 40 mg IVP Q12HR [facility] Stop: 10/13/17 20:59 Last Admin: 08/17/17 09:26 Dose: 40 mg Miscellaneous (Vancomycin Iv Per Pharmacy) 1 ea PRN PRN PRN Reason: PROTOCOL Stop: 10/11/17 20:10 Miscellaneous (Probiotic Screen) 1 ea PRN PRN PRN Reason: PROTOCOL Stop: 10/13/17 08:29 Mupirocin (Bactroban Oint) 1 appl NS BID [facility] Stop: 08/18/17 17:01 Last Admin: 08/17/17 09:41 Dose: 1 appl Pantoprazole Sodium (Protonix) 40 mg IVP DAILY [facility] Stop: 10/13/17 08:59 Last Admin: 08/17/17 09:25 Dose: 40 mg General: no acute distress, well developed, well nourished HEENT: atraumatic, normocephalic, PERRLA, EOMI Neck: supple, no thyromegaly Cardiovascular: S1S2, regular Lungs: clear to auscultation bilaterally, clear to percussion Abdomen: soft, no tender, no distended Extremities: no cyanosis, no clubbing, no edema Neurological: awake, alert, oriented Skin: intact - Procedures Procedures: Procedures Procedure Code Date ASSISTANCE WITH RESPIRATORY VENTILATION, <24 HRS, CPAP [id number] 08/12/17 POS AIRWAY PRESSURE CPAP 61734 08/12/17 Infectious Disease Assmt/Plan - Assessment Assessment: 1.Leukoytosis, likely 2/2 steroids. 2. Cellultis of left leg. US of left leg neg for DVT. 3. Pneumonia, LLL ? CAP versus HCAP versus atypical. 4. hypercapneic, hypoxic respiratory failure. 5. COPD with exacerbation. 6. WYATT. 7. Obesity. 8. DM2. 9. HTN. 10 ? Cor pulmonale. 11. Obesity. 12. H/O CVA. 13. Neutrophilia. 14. Thrombocytosis. 15. Pitting edemao of legs. 16. CHF. 17. Respiratory acidosis. PH 7.32. 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 19. DVT prophylaxis. 20. PPI prophylaxis. - Plan Plan: Will continue vacnomycin, zithromax and Zosyn, Lasix IV to 40mg bid to lasix 40 mg po daily. dc Solumedrol 40 mg IV q12. DVT prophylaxis. PPI prophylaxis. Juan Diego Wrap.
--- NOTE | 2017-08-17 11:14 | Infectious Disease Prog Note ---
Infectious Disease Subjective - Review of Systems Service Date: 08/17/17 Subjective: doing well. Infectious Disease Objective - Results Result Diagrams: 08/17/17 06:23 08/17/17 06:23 Recent Labs: Laboratory Last Values WBC 14.5 Th/cmm (4.8-10.8) H 08/17/17 06:23 RBC 4.67 Mil/cmm (3.80-5.20) 08/17/17 06:23 Hgb 12.4 gm/dL (12-16) 08/17/17 06:23 Hct 38.2 % (41.0-60) L 08/17/17 06:23 MCV 81.9 fl (81-100) 08/17/17 06:23 MCH 26.5 pg (27.0-31.0) L 08/17/17 06:23 MCHC Differential 32.4 pg (28.0-36.0) 08/17/17 06:23 RDW 15.4 % (11.5-20.0) 08/17/17 06:23 Plt Count 574 Th/cmm (150-400) H 08/17/17 06:23 MPV 6.9 fl 08/17/17 06:23 Neutrophils % 86.8 % (40.0-80.0) H 08/17/17 06:23 Band Neutrophils % 3 % (0-10) 08/14/17 06:15 Lymphocytes % 9.6 % (20.0-50.0) L 08/17/17 06:23 Monocytes % 3.4 % (2.0-10.0) 08/17/17 06:23 Eosinophils % 0.2 % (0.0-5.0) 08/17/17 06:23 Basophils % 0.0 % (0.0-2.0) 08/17/17 06:23 Neutrophils (Manual) 93 % (40-80) H 08/16/17 06:39 Lymphocytes 5 % (20-50) L 08/16/17 06:39 Monocytes 2 % (2-10) 08/16/17 06:39 Platelet Estimate INCREASED PLATELETS (NORMAL) 08/16/17 06:39 PT 10.1 SECONDS (9.5-11.5) 08/12/17 14:01 INR 0.97 (0.5-1.4) 08/12/17 14:01 PTT (Actin FS) 23.7 SECONDS (26.0-38.0) L 08/12/17 14:01 Specimen Source Arterial 08/13/17 17:32 Sample Site Left Radial 08/13/17 17:32 pH 7.32 (7.35-7.45) L 08/13/17 17:32 pCO2 49.0 mmHg (35.0-45.0) H 08/13/17 17:32 pO2 68.0 mmHg (80.0-100.0) L 08/13/17 17:32 HCO3 23.7 mEq/L (20.0-26.0) 08/13/17 17:32 Base Excess -1.4 mEq/L (-3.0-3.0) 08/13/17 17:32 O2 Saturation 92.0 % (92.0-100.0) 08/13/17 17:32 [place] Test Yes 08/13/17 17:32 Vent Rate 12 08/13/17 17:32 Inspired O2 50 08/13/17 17:32 Tidal Volume n/a 08/13/17 17:32 PEEP n/a 08/13/17 17:32 Pressure (ins/psv/peep) 6 08/13/17 17:32 Critical Value [place] 08/13/17 17:32 Sodium 134 mEq/L (136-145) L 08/17/17 06:23 Potassium 4.1 mEq/L (3.5-5.1) 08/17/17 06:23 Chloride 92 mEq/L (98-107) L 08/17/17 06:23 Carbon Dioxide 34.3 mEq/L (21.0-31.0) H 08/17/17 06:23 Anion Gap 11.8 (7.0-16.0) 08/17/17 06:23 BUN 39 mg/dL (7-25) H 08/17/17 06:23 Creatinine 1.2 mg/dL (0.6-1.2) 08/17/17 06:23 Est GFR ( Amer) 57.8 ml/min (>90) 08/17/17 06:23 Est GFR (Non-Af Amer) 47.8 ml/min 08/17/17 06:23 BUN/Creatinine Ratio 32.5 08/17/17 06:23 Glucose 250 mg/dL (70-105) H 08/17/17 06:23 Hemoglobin A1c % 8.3 % (4.0-6.0) H 08/15/17 06:21 Whole Bld Lactic Acid 1.80 mmol/L (0.60-1.99) 08/12/17 14:01 Calcium 9.1 mg/dL (8.6-10.3) 08/17/17 06:23 Total Bilirubin 0.5 mg/dL (0.3-1.0) 08/17/17 06:23 AST 8 U/L (13-39) L 08/17/17 06:23 ALT 13 U/L (7-52) 08/17/17 06:23 Alkaline Phosphatase 43 U/L (34-104) 08/17/17 06:23 Creatine Kinase 15 U/L (30-223) L 08/12/17 14:01 Troponin I < 0.01 ng/mL (0.01-0.05) L 08/12/17 14:01 Total Protein 6.6 gm/dL (6.0-8.3) 08/17/17 06:23 Albumin 3.2 gm/dL (3.7-5.3) L 08/17/17 06:23 Globulin 3.4 gm/dL 08/17/17 06:23 Albumin/Globulin Ratio 0.9 (1.0-1.8) L 08/17/17 06:23 Vancomycin Trough 31.4 ug/mL (5-10) H 08/16/17 10:00 Random Vancomycin 27.3 ug/mL (5.0-40.0) 08/17/17 06:23 - Physical Exam Vitals and I&O: Vital Signs Temp 96.8 F 08/17/17 08:00 Pulse 82 08/17/17 08:00 Resp 18 08/17/17 08:00 BP 117/80 08/17/17 09:28 Pulse Ox 92 08/17/17 08:00 Intake & Output 08/16/17 08/17/17 08/17/17 18:59 06:59 18:59 Intake Total 1550 690 Balance 1550 690 Weight (lbs) 119.975 kg 143.335 kg Intake: Intake, IV Amount 450 450 Azithromycin 250 mg In 250 Sodium Chloride 0.9% 250 ml @ 250 mls/hr IV Q24HR [facility] Rx#:[id number] Piperacillin Sodium/ 200 200 Tazobact 4.5 gm In Sodium Chloride 0.9% 100 ml @ 100 mls/hr IV Q8HR [facility] Rx #:[id number] Vancomycin HCl 1 gm In 250 Sodium Chloride 0.9% 250 ml @ 165 mls/hr IV Q12HR [facility] Rx#:[id number] Oral 1100 240 Other: # Voids 4 3 # Bowel Movements 2 2 Stool Characteristics Soft Weight Source Bedscale Bedscale Active Medications: Current Medications Albuterol Sulfate (Albuterol 2.5mg/3ml Neb Ud) 2.5 mg HHN Q2HRT PRN PRN Reason: sob Stop: 10/11/17 19:57 Last Admin: 08/13/17 09:50 Dose: 2.5 mg Albuterol Sulfate (Albuterol 2.5mg/3ml Neb Ud) 2.5 mg HHN Q6HRT [facility] Stop: 10/11/17 19:59 Last Admin: 08/17/17 07:05 Dose: 2.5 mg Amlodipine Besylate (Norvasc) 10 mg PO DAILY [facility] Stop: 10/12/17 08:59 Last Admin: 08/16/17 09:42 Dose: 10 mg Artificial Tears (Artificial Tears Ophth Soln) 1 drop EACH EYE BID PRN PRN Reason: DRY EYES Stop: 10/12/17 08:12 Last Admin: 08/17/17 09:41 Dose: 1 drop Aspirin (Aspirin Chewable) 81 mg PO DAILY [facility] Stop: 10/12/17 08:59 Last Admin: 08/17/17 09:28 Dose: 81 mg Atorvastatin Calcium (Lipitor) 20 mg PO HS [facility] Stop: 10/11/17 20:59 Last Admin: 08/16/17 21:11 Dose: 20 mg Escitalopram Oxalate (Lexapro) 5 mg PO DAILY [facility] PRN Reason: Protocol Stop: 10/12/17 08:59 Last Admin: 08/17/17 09:28 Dose: 5 mg Fenofibrate (Tricor) 134 mg PO DAILY [facility] Stop: 10/12/17 08:59 Last Admin: 08/17/17 09:28 Dose: 134 mg Fluticasone Propionate (Flonase) 1 spr NS DAILY [facility] Stop: 10/12/17 08:59 Last Admin: 08/17/17 09:41 Dose: 1 spr Furosemide (Lasix) 40 mg PO DAILY [facility] Stop: 10/17/17 08:59 Gabapentin (Neurontin) 300 mg PO TID@0800,1600,2100 [facility] Stop: 10/11/17 20:59 Last Admin: 08/17/17 09:28 Dose: 300 mg Gabapentin (Neurontin) 200 mg PO HS [facility] Stop: 10/11/17 20:59 Last Admin: 08/16/17 21:11 Dose: 200 mg Heparin Sodium (Porcine) (Heparin) 5,000 units SUBQ Q12HR [facility] Stop: 10/12/17 20:59 Last Admin: 08/17/17 09:28 Dose: 5,000 units Azithromycin 250 mg/ Sodium (Chloride) 250 mls @ 250 mls/hr IV Q24HR [facility] Stop: 10/13/17 08:59 Last Admin: 08/17/17 09:41 Dose: 165 mls/hr Piperacillin Sod/Tazobactam (Sod 4.5 gm/ Sodium Chloride) 100 mls @ 100 mls/hr IV Q8HR [facility] Stop: 10/12/17 20:59 Last Infusion: 08/17/17 06:48 Dose: Infused Vancomycin HCl 1.5 gm/ Sodium (Chloride) 500 mls @ 250 mls/hr IV Q24H [facility] Stop: 10/16/17 14:59 Lactobacillus Rhamnosus (Culturelle 15b) 1 each PO DAILY [facility] Stop: 10/13/17 08:59 Last Admin: 08/17/17 09:26 Dose: 1 each Lorazepam (Ativan) 1 mg IVP Q4HR PRN; Protocol PRN Reason: Anxiety Stop: 10/12/17 04:47 Last Admin: 08/16/17 15:10 Dose: 1 mg Miscellaneous (Vancomycin Iv Per Pharmacy) 1 ea PRN PRN PRN Reason: PROTOCOL Stop: 10/11/17 20:10 Miscellaneous (Probiotic Screen) 1 ea PRN PRN PRN Reason: PROTOCOL Stop: 10/13/17 08:29 Mupirocin (Bactroban Oint) 1 appl NS BID [facility] Stop: 08/18/17 17:01 Last Admin: 08/17/17 09:41 Dose: 1 appl Pantoprazole Sodium (Protonix) 40 mg IVP DAILY [facility] Stop: 10/13/17 08:59 Last Admin: 08/17/17 09:25 Dose: 40 mg General: no acute distress, well developed, well nourished HEENT: atraumatic, normocephalic Neck: supple, no thyromegaly Cardiovascular: S1S2, regular Lungs: clear to auscultation bilaterally, clear to percussion Abdomen: soft, no tender, no distended, no mass Extremities: other (Left leg swelling lesser now.), no cyanosis, no clubbing, no edema Neurological: awake, alert, oriented Skin: intact - Procedures Procedures: Procedures Procedure Code Date ASSISTANCE WITH RESPIRATORY VENTILATION, <24 HRS, CPAP [id number] 08/12/17 POS AIRWAY PRESSURE CPAP 62455 08/12/17 Infectious Disease Assmt/Plan - Assessment Assessment: 1.Leukoytosis, likely 2/2 steroids. 2. Cellultis of left leg. US of left leg neg for DVT. 3. Pneumonia, LLL ? CAP versus HCAP versus atypical. 4. hypercapneic, hypoxic respiratory failure. 5. COPD with exacerbation. 6. WYATT. 7. Obesity. 8. DM2. 9. HTN. 10 ? Cor pulmonale. 11. Obesity. 12. H/O CVA. 13. Neutrophilia. 14. Thrombocytosis. 15. Pitting edemao of legs. 16. CHF. 17. Respiratory acidosis. PH 7.32. 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 19. DVT prophylaxis. 20. PPI prophylaxis. - Plan Plan: Will continue vacnomycin, zithromax and Zosyn, may change antibiotics to bactrim DS bid po and levaquin 500mg po daily for 7 days. Lasix IV to 40mg bid to lasix 40 mg po daily. dc Solumedrol 40 mg IV q12. DVT prophylaxis. PPI prophylaxis. [place] Wrap.
[2017-08-17] MEDS ORDERED: Vancomycin HCl 1.5 GM in Sodium Chloride 0.9% 500 ML IV SCH (15:00)
[2017-08-17] MEDS: Atorvastatin Calcium 10 MG TAB PO SCH (21:24)
--- NOTE | 2017-08-17 21:31 | General Progress Note ---
Subjective - Review of Systems Service Date: 08/17/17 Subjective: Patient seen and examined feels better denied chest pain or shortness of breath Objective - Results Result Diagrams: 08/17/17 06:23 08/17/17 06:23 Recent Labs: Laboratory Last Values WBC 14.5 Th/cmm (4.8-10.8) H 08/17/17 06:23 RBC 4.67 Mil/cmm (3.80-5.20) 08/17/17 06:23 Hgb 12.4 gm/dL (12-16) 08/17/17 06:23 Hct 38.2 % (41.0-60) L 08/17/17 06:23 MCV 81.9 fl (81-100) 08/17/17 06:23 MCH 26.5 pg (27.0-31.0) L 08/17/17 06:23 MCHC Differential 32.4 pg (28.0-36.0) 08/17/17 06:23 RDW 15.4 % (11.5-20.0) 08/17/17 06:23 Plt Count 574 Th/cmm (150-400) H 08/17/17 06:23 MPV 6.9 fl 08/17/17 06:23 Neutrophils % 86.8 % (40.0-80.0) H 08/17/17 06:23 Band Neutrophils % 3 % (0-10) 08/14/17 06:15 Lymphocytes % 9.6 % (20.0-50.0) L 08/17/17 06:23 Monocytes % 3.4 % (2.0-10.0) 08/17/17 06:23 Eosinophils % 0.2 % (0.0-5.0) 08/17/17 06:23 Basophils % 0.0 % (0.0-2.0) 08/17/17 06:23 Neutrophils (Manual) 93 % (40-80) H 08/16/17 06:39 Lymphocytes 5 % (20-50) L 08/16/17 06:39 Monocytes 2 % (2-10) 08/16/17 06:39 Platelet Estimate INCREASED PLATELETS (NORMAL) 08/16/17 06:39 PT 10.1 SECONDS (9.5-11.5) 08/12/17 14:01 INR 0.97 (0.5-1.4) 08/12/17 14:01 PTT (Actin FS) 23.7 SECONDS (26.0-38.0) L 08/12/17 14:01 Specimen Source Arterial 08/13/17 17:32 Sample Site Left Radial 08/13/17 17:32 pH 7.32 (7.35-7.45) L 08/13/17 17:32 pCO2 49.0 mmHg (35.0-45.0) H 08/13/17 17:32 pO2 68.0 mmHg (80.0-100.0) L 08/13/17 17:32 HCO3 23.7 mEq/L (20.0-26.0) 08/13/17 17:32 Base Excess -1.4 mEq/L (-3.0-3.0) 08/13/17 17:32 O2 Saturation 92.0 % (92.0-100.0) 08/13/17 17:32 [place] Test Yes 08/13/17 17:32 Vent Rate 12 08/13/17 17:32 Inspired O2 50 08/13/17 17:32 Tidal Volume n/a 08/13/17 17:32 PEEP n/a 08/13/17 17:32 Pressure (ins/psv/peep) 6 08/13/17 17:32 Critical Value [place] 08/13/17 17:32 Sodium 134 mEq/L (136-145) L 08/17/17 06:23 Potassium 4.1 mEq/L (3.5-5.1) 08/17/17 06:23 Chloride 92 mEq/L (98-107) L 08/17/17 06:23 Carbon Dioxide 34.3 mEq/L (21.0-31.0) H 08/17/17 06:23 Anion Gap 11.8 (7.0-16.0) 08/17/17 06:23 BUN 39 mg/dL (7-25) H 08/17/17 06:23 Creatinine 1.2 mg/dL (0.6-1.2) 08/17/17 06:23 Est GFR ( Amer) 57.8 ml/min (>90) 08/17/17 06:23 Est GFR (Non-Af Amer) 47.8 ml/min 08/17/17 06:23 BUN/Creatinine Ratio 32.5 08/17/17 06:23 Glucose 250 mg/dL (70-105) H 08/17/17 06:23 Hemoglobin A1c % 8.3 % (4.0-6.0) H 08/15/17 06:21 Whole Bld Lactic Acid 1.80 mmol/L (0.60-1.99) 08/12/17 14:01 Calcium 9.1 mg/dL (8.6-10.3) 08/17/17 06:23 Total Bilirubin 0.5 mg/dL (0.3-1.0) 08/17/17 06:23 AST 8 U/L (13-39) L 08/17/17 06:23 ALT 13 U/L (7-52) 08/17/17 06:23 Alkaline Phosphatase 43 U/L (34-104) 08/17/17 06:23 Creatine Kinase 15 U/L (30-223) L 08/12/17 14:01 Troponin I < 0.01 ng/mL (0.01-0.05) L 08/12/17 14:01 Total Protein 6.6 gm/dL (6.0-8.3) 08/17/17 06:23 Albumin 3.2 gm/dL (3.7-5.3) L 08/17/17 06:23 Globulin 3.4 gm/dL 08/17/17 06:23 Albumin/Globulin Ratio 0.9 (1.0-1.8) L 08/17/17 06:23 Vancomycin Trough 31.4 ug/mL (5-10) H 08/16/17 10:00 Random Vancomycin 27.3 ug/mL (5.0-40.0) 08/17/17 06:23 - Physical Exam Vitals and I&O: Vital Signs Temp 98.2 F 08/17/17 20:00 Pulse 82 08/17/17 20:00 Resp 19 08/17/17 20:00 BP 144/84 08/17/17 20:00 Pulse Ox 92 08/17/17 20:00 Intake & Output 08/17/17 08/17/17 05 06:59 18:59 06:59 Intake Total 690 600 Balance 690 600 Weight (lbs) 143.335 kg 143.335 kg 151.5 kg Intake: Intake, IV Amount 450 Piperacillin Sodium/ 200 Tazobact 4.5 gm In Sodium Chloride 0.9% 100 ml @ 100 mls/hr IV Q8HR [facility] Rx #:[id number] Vancomycin HCl 1 gm In 250 Sodium Chloride 0.9% 250 ml @ 165 mls/hr IV Q12HR [facility] Rx#:[id number] Oral 240 600 Other: # Voids 3 3 # Bowel Movements 2 1 Weight Source Bedscale Bedscale Bedscale Active Medications: Current Medications Albuterol Sulfate (Albuterol 2.5mg/3ml Neb Ud) 2.5 mg HHN Q2HRT PRN PRN Reason: sob Stop: 10/11/17 19:57 Last Admin: 08/13/17 09:50 Dose: 2.5 mg Albuterol Sulfate (Albuterol 2.5mg/3ml Neb Ud) 2.5 mg HHN Q6HRT [facility] Stop: 10/11/17 19:59 Last Admin: 08/17/17 12:20 Dose: 2.5 mg Amlodipine Besylate (Norvasc) 10 mg PO DAILY [facility] Stop: 10/12/17 08:59 Last Admin: 08/17/17 13:00 Dose: 10 mg Artificial Tears (Artificial Tears Ophth Soln) 1 drop EACH EYE BID PRN PRN Reason: DRY EYES Stop: 10/12/17 08:12 Last Admin: 08/17/17 09:41 Dose: 1 drop Aspirin (Aspirin Chewable) 81 mg PO DAILY [facility] Stop: 10/12/17 08:59 Last Admin: 08/17/17 09:28 Dose: 81 mg Atorvastatin Calcium (Lipitor) 20 mg PO HS [facility] Stop: 10/11/17 20:59 Last Admin: 08/17/17 21:24 Dose: 20 mg Escitalopram Oxalate (Lexapro) 5 mg PO DAILY [facility] PRN Reason: Protocol Stop: 10/12/17 08:59 Last Admin: 08/17/17 09:28 Dose: 5 mg Fenofibrate (Tricor) 134 mg PO DAILY [facility] Stop: 10/12/17 08:59 Last Admin: 08/17/17 09:28 Dose: 134 mg Fluticasone Propionate (Flonase) 1 spr NS DAILY [facility] Stop: 10/12/17 08:59 Last Admin: 08/17/17 09:41 Dose: 1 spr Furosemide (Lasix) 40 mg PO DAILY [facility] Stop: 10/17/17 08:59 Gabapentin (Neurontin) 300 mg PO TID@0800,1600,2100 [facility] Stop: 10/11/17 20:59 Last Admin: 08/17/17 21:24 Dose: 300 mg Gabapentin (Neurontin) 200 mg PO HS [facility] Stop: 10/11/17 20:59 Last Admin: 08/17/17 21:24 Dose: 200 mg Heparin Sodium (Porcine) (Heparin) 5,000 units SUBQ Q12HR [facility] Stop: 10/12/17 20:59 Last Admin: 08/17/17 21:25 Dose: 5,000 units Lactobacillus Rhamnosus (Culturelle 15b) 1 each PO DAILY [facility] Stop: 10/13/17 08:59 Last Admin: 08/17/17 09:26 Dose: 1 each Lorazepam (Ativan) 1 mg IVP Q4HR PRN; Protocol PRN Reason: Anxiety Stop: 10/12/17 04:47 Last Admin: 08/16/17 15:10 Dose: 1 mg Miscellaneous (Vancomycin Iv Per Pharmacy) 1 ea PRN PRN PRN Reason: PROTOCOL Stop: 10/11/17 20:10 Miscellaneous (Probiotic Screen) 1 ea PRN PRN PRN Reason: PROTOCOL Stop: 10/13/17 08:29 Mupirocin (Bactroban Oint) 1 appl NS BID [facility] Stop: 08/18/17 17:01 Last Admin: 08/17/17 09:41 Dose: 1 appl Pantoprazole Sodium (Protonix) 40 mg IVP DAILY [facility] Stop: 10/13/17 08:59 Last Admin: 08/17/17 09:25 Dose: 40 mg General: Alert (w) Cardiovascular: Regular rate Lungs: Other ( rales better) Abdomen: Soft Extremities: Edema (better) - Procedures Procedures: Procedures Procedure Code Date ASSISTANCE WITH RESPIRATORY VENTILATION, <24 HRS, CPAP [id number] 08/12/17 POS AIRWAY PRESSURE CPAP 50451 08/12/17 Assessment/Plan - Assessment Assessment: Altered mental state better Acute on chronic respiratory failure Acute COPD exacerbation HTN Nicotine dependancy - Plan Plan: DC plan back to SNIF in progress Taper steoids DC Vanco Oxygen Bronchodilator Monitor vitals Monitor pul status Plan of care discussed with nursing staff
--- NOTE | 2017-08-18 02:31 | Progress Notes ---
DATE: 08/17/2017 Case was discussed with staff of the patient, reviewed records. The patient continues to stay in bed. Continues to being treated in the med-surg unit. There is no acute distress. She is getting ____. She continues to have episodes of anxiety, but not as prominent. She is easier to redirect. So, continue using Ativan as needed. Thank you very much for allowing me to participate in the care of this most interesting lady. JOB# [id number]
--- NOTE | 2017-08-18 02:37 | Progress Notes ---
DATE: 08/17/2017 PULMONARY PROGRESS NOTE PROBLEM LIST: 1. Acute on chronic respiratory failure. 2. Chronic obstructive pulmonary disease. 3. Suspect obstructive sleep apnea syndrome. SYMPTOMS: Nil, feeling better, less coughing, not much wheezing, and no chest pain. PHYSICAL EXAMINATION: VITAL SIGNS: The patient's temperature is 97.6, respirations 17, and the patient's saturation is 94% on 2 liters per minute. NECK: Veins not visualized. CHEST: Shows occasional rhonchi with diminished air entry. HEART: Regular. ABDOMEN: Soft, nontender. EXTREMITIES: Shows no peripheral edema. ASSESSMENT: The patient is clinically slightly better, persistent elevated white count still about 14,000-15,000. PLANS AND SUGGESTIONS: We will go ahead and repeat chest x-ray, blood gases, CBC, and continue rest of the treatment, etc., and go from there. JOB# [id number]
--- NOTE | 2017-08-18 11:45 | Progress Notes ---
DATE: 08/15/2017 SUBJECTIVE: The patient seen and examined. The patient is lying in the bed. The patient has no new complaint. PHYSICAL EXAMINATION: VITAL SIGNS: See nurse's note. HEENT: No facial asymmetry. NECK: Supple, no JVD. HEART: Regular, no murmur. CHEST: Lung equal in expansion, no wheezing, no crackles. ABDOMEN: Soft. No guarding, rigidity. Bowel sounds are not palpable. EXTREMITIES: No decreased edema of both lower extremities noted with erythema and orientation of the left leg noted. CLINICAL IMPRESSION: 1. Acute on chronic respiratory failure. 2. Hypertension. 3. Smoking. 4. Lower extremity cellulitis. 5. Leukocytosis. 6. Degenerative joint disease. 7. Obesity. 8. Congestive heart failure. PLAN: 1. Antibiotic. 2. Symptoms management. 3. General nursing care. 4. Follow lab. 5. Follow consult recommendation. 6. Care plan reviewed and discussed with staff. PLAN: reviewed and discussed with staff. JOB# [id number]
--- NOTE | 2017-08-19 04:09 | Progress Notes ---
DATE: 08/18/2017 PULMONARY PROGRESS NOTE PROBLEM LIST: 1. Acute exacerbation of chronic obstructive pulmonary disease. 2. Leukocytosis. 3. Morbid obesity. SYMPTOMS: Nil. The patient is feeling better. No coughing, no more wheezing, etc. PHYSICAL EXAMINATION: VITAL SIGNS: The patient's temperature is 97.8, blood pressure 134/81, saturation is 94 on 2 liters. NECK: Veins not visualized. CHEST: Shows diminished air entry with occasional rhonchi. HEART: Regular. ABDOMEN: Soft, nontender. EXTREMITIES: Shows no peripheral edema. LABORATORY AND DIAGNOSTIC DATA: Chest x-ray is pending. White count is 14.5. ASSESSMENT: The patient is clinically stable, not to change, a couple of other things can be checked as an outpatient and go from there. JOB# [id number]
== END 2017-08-18 01:00 | DRG 871 ==
LOC: ER 13:12 → MSI 17:15 → TELE 08-13 18:15
PROVIDERS: ADMIT Family Medicine; ATTEND Family Medicine
PROC: 5A09357 Assistance with Respiratory Ventilation, Less than 24 Consecutive Hours, Continuous Positive Airway Pressure (ICD-10-PCS; principal; 2017-08-13)
DX: A41.9 Sepsis, unspecified organism (principal); J96.21 Acute and chronic respiratory failure with hypoxia; J18.1 Lobar pneumonia, unspecified organism; J96.22 Acute and chronic respiratory failure with hypercapnia; L03.116 Cellulitis of left lower limb; F33.2 Major depressive disorder, recurrent severe without psychotic features; J44.1 Chronic obstructive pulmonary disease with (acute) exacerbation; J44.0 Chronic obstructive pulmonary disease with (acute) lower respiratory infection; Z68.43 Body mass index [BMI] 50.0-59.9, adult; I50.9 Heart failure, unspecified; E78.5 Hyperlipidemia, unspecified; E11.9 Type 2 diabetes mellitus without complications; F17.200 Nicotine dependence, unspecified, uncomplicated; F29 Unspecified psychosis not due to a substance or known physiological condition; G47.33 Obstructive sleep apnea (adult) (pediatric); E66.9 Obesity, unspecified; I11.0 Hypertensive heart disease with heart failure; M19.90 Unspecified osteoarthritis, unspecified site; Z86.73 Personal history of transient ischemic attack (TIA), and cerebral infarction without residual deficits; Z79.82 Long term (current) use of aspirin; Z22.322 Carrier or suspected carrier of Methicillin resistant Staphylococcus aureus
CPT/HCPCS: 36415-UA; 36600-90; 71045-TC; 80048-TC; 80053-TC; 80202-TC; 82550-TC; 82803-TC; 83036-90; 83605; 84484-TC; 85007-TC; 85025-TC; 85027-TC; 85610-TC; 85730-TC; 87070; 93005; 93970-TC-50; 94640; 94660; 94760; C9113; J0456; J0696; J1644; J1940; J2060; J2543; J2920; J2930; J3370; J7040; J7613; Z7610